=== PATIENT | male | born 1955 | race Caucasian/White ===

== ENCOUNTER 2016-11-03 07:09 | Emergency (ER) | payer MEDICAID ==
[~2016-11-03] VITALS: Ht 188 cm; Wt 72.1 kg
[~2016-11-03 07:09] MED LIST: HYDR-2549 PO
[2016-11-03 08:06] LABS: Basophils # (auto) 0 uL; Basophils % (auto) 0.3 % (0.0-2.0); Eosinophils # (auto) 0.2 uL; Eosinophils % (auto) 1.1 % (0.0-7.0); Hematocrit 40.8 % (41.0-53.0); Hemoglobin 14.1 g/dL (13.5-17.5); Lymphocytes # (auto) 4.2 uL; Lymphocytes % (auto) 26.8 % (10.0-50.0); Mean Corpuscular Hemoglobin 33.5 pg (28.0-32.0); Mean Corpuscular Hgb Conc. 34.7 g/dL (32.0-36.0); Mean Corpuscular Volume 96.5 fL (80.0-100.0); Monocytes # (auto) 1.3 uL; Monocytes % (auto) 8.3 % (0.0-12.0); Neutrophils % (auto) 63.5 % (37.0-80.0); Platelet Count (auto) 537 10^3/uL (140-450); Red Cell Distribution Width 13.2 % (11.6-16.0); White Blood Cell 15.7 10^3/uL (4.4-10.8)
[2016-11-03 08:25] LABS: Albumin 3.5 g/dL (3.4-5.0); Anion Gap 8 (5-15); Blood Urea Nitrogen 10 mg/dL (7-18); Calcium 8.2 mg/dL (8.5-10.1); Carbon Dioxide 23 mmol/L (21-32); Chloride 105 mmol/L (98-107); Glucose 90 mg/dL (74-106); Magnesium 2.1 mg/dL (1.6-2.6); Potassium 3.4 mmol/L (3.5-5.1); Sodium 136 mmol/L (136-145)
[2016-11-03 08:28] LABS: Aspartate Aminotransferase 8 U/L (15-37); BUN/Creatinine Ratio 14.7; GFR African American 153 mL/min; GFR Non-African American 127 mL/min
[2016-11-03 08:42] LABS: Alkaline Phosphatase 84 U/L (45-117); Bilirubin, Total 0.2 mg/dL (0.2-1.0); Total Protein 7.4 g/dL (6.4-8.2)
[2016-11-03 10:05] LABS: Urine Bilirubin Negative (Negative); Urine Blood Negative /uL (Negative); Urine Color Yellow (Yellow); Urine Glucose Normal (Normal); Urine Ketone Negative (Negative); Urine Nitrite Negative (Negative); Urine RBC 1 /hpf (0 - 3); Urine Urobilinogen Normal (Negative)
[2016-11-03] MEDS ORDERED: SODIUM CHLORIDE 0.9% 1,000 ML IVB ONE (10:06)
[2016-11-03] MEDS ORDERED: ONDANSETRON HCL 4 MG/2 ML VIAL IV ONE (10:15)
[2016-11-03] MEDS ORDERED: NALBUPHINE HCL 10 MG/1ml INJECTION IV ONE (11:15)
[2016-11-03 11:48] VITALS: BP 120/74
== END 2016-11-03 12:32 | disposition home or self-care (01) ==
LOC: ER 07:09
DX: R10.9 Unspecified abdominal pain (principal); R51 Headache; G89.29 Other chronic pain; R11.2 Nausea with vomiting, unspecified; R19.7 Diarrhea, unspecified; M54.9 Dorsalgia, unspecified; F17.210 Nicotine dependence, cigarettes, uncomplicated; R53.1 Weakness; Z96.642 Presence of left artificial hip joint; Z88.0 Allergy status to penicillin; Z88.8 Allergy status to other drugs, medicaments and biological substances
CPT/HCPCS: 36415; 71020; 74176; 80053; 81001; 83690; 83735; 84484; 85025; 93005; 96361; 96374; 96375; 99285; J2300; J2405; J7030

== ENCOUNTER 2017-08-16 04:11 | Emergency (ER) | payer MEDICAID ==
[~2017-08-16] VITALS: Ht 182.9 cm; Wt 90.7 kg
[2017-08-16] MEDS ORDERED: MORPHINE SULFATE 4 MG/ML SYR/VIAL IV ONE (05:30)
[2017-08-16 06:26] LABS: Basophils # (auto) 0.1 uL; Basophils % (auto) 0.6 % (0.0-2.0); Eosinophils # (auto) 0.2 uL; Eosinophils % (auto) 1.7 % (0.0-7.0); Hematocrit 37.9 % (41.0-53.0); Hemoglobin 13.1 g/dL (13.5-17.5); Lymphocytes # (auto) 2.1 uL; Lymphocytes % (auto) 18.8 % (10.0-50.0); Mean Corpuscular Hemoglobin 33.8 pg (28.0-32.0); Mean Corpuscular Hgb Conc. 34.6 g/dL (32.0-36.0); Mean Corpuscular Volume 97.8 fL (80.0-100.0); Monocytes # (auto) 0.9 uL; Monocytes % (auto) 7.6 % (0.0-12.0); Neutrophils # (auto) 8.1 uL; Neutrophils % (auto) 71.3 % (37.0-80.0); Nucleated Red Blood Cells % 0.1 %; Platelet Count (auto) 383 10^3/uL (140-450); Red Blood Cells 3.88 10^6/uL (4.5-5.90); Red Cell Distribution Width 13.3 % (11.8-14.3); White Blood Cell 11.4 10^3/uL (4.4-10.8)
[2017-08-16 06:42] LABS: Alanine Aminotransferase 16 U/L (16-61); Albumin 3.4 g/dL (3.4-5.0); Alkaline Phosphatase 88 U/L (45-117); Anion Gap 8 (5-15); Aspartate Aminotransferase 9 U/L (15-37); BUN/Creatinine Ratio 11.5; Bilirubin, Total 0.3 mg/dL (0.2-1.0); Blood Urea Nitrogen 7 mg/dL (7-18); Calcium 7.8 mg/dL (8.5-10.1); Carbon Dioxide 24 mmol/L (21-32); Chloride 102 mmol/L (98-107); GFR African American 173 mL/min; GFR Non-African American 143 mL/min; Glucose 102 mg/dL (74-106); Potassium 3.8 mmol/L (3.5-5.1); Sodium 134 mmol/L (136-145); Total Protein 6.5 g/dL (6.4-8.2)
[2017-08-16] MEDS ORDERED: ONDANSETRON HCL 4 MG/2 ML VIAL IV ONE (07:00)
[2017-08-16] MEDS ORDERED: SUMAtriptan SUCCINATE 6 MG/0.5 ML VL SC ONE (07:00)
[2017-08-16 09:00] VITALS: BP 116/71
== END 2017-08-16 09:23 | disposition home or self-care (01) ==
LOC: EDBD 04:11 → ER 04:15
DX: G43.909 Migraine, unspecified, not intractable, without status migrainosus (principal); F17.210 Nicotine dependence, cigarettes, uncomplicated; Z88.0 Allergy status to penicillin; Z88.8 Allergy status to other drugs, medicaments and biological substances; Z90.49 Acquired absence of other specified parts of digestive tract
CPT/HCPCS: 36415; 70450; 80053; 84484; 85025; 93005; 96372; 96374; 96375; 99285; J2270; J2405; J3030; J7030

== ENCOUNTER 2020-12-01 07:00 | Inpatient (IN) | payer MEDICAID ==
[~2020-12-01] VITALS: Ht 182.9 cm; Wt 70.1 kg
[2020-12-01] MEDS ORDERED: ONDANSETRON HCL 4 MG/2 ML VIAL IV ONE ×2 (07:30→09:00)
[2020-12-01] MEDS ORDERED: SODIUM CHLORIDE 0.9% 1,000 ML IV ONE ×3 (07:30→10:30)
[2020-12-01] MEDS ORDERED: MORPHINE SULF INJ 2 MG/ML SYRINGE 1ML IV ONE (07:30)
[2020-12-01 07:55] LABS: Basophils # (auto) 0.1 10 ^3/uL (0-0.2); Hemoglobin 13.7 g/dL (13.5-17.5); Neutrophils % (auto) 79.1 % (37.0-80.0)
[2020-12-01 07:57] LABS: Basophils % (auto) 0.6 % (0.0-2.0); Eosinophils # (auto) 0.4 10 ^3/uL (0-0.8); Eosinophils % (auto) 2.5 % (0.0-7.0); Lymphocytes # (auto) 1.7 10 ^3/uL (0.4-5.4); Lymphocytes % (auto) 10.9 % (10.0-50.0); Mean Corpuscular Hemoglobin 33.9 pg (28.0-32.0); Mean Corpuscular Hgb Conc. 35.1 g/dL (32.0-36.0); Mean Corpuscular Volume 96.7 fL (80.0-100.0); Monocytes # (auto) 1.1 10 ^3/uL (0-1.3); Monocytes % (auto) 6.9 % (0.0-12.0); Neutrophils # (auto) 12.6 10 ^3/uL (1.6-8.6); Platelet Count (auto) 414 10^3/uL (140-450); Red Blood Cells 4.03 10^6/uL (4.5-5.90); Red Cell Distribution Width 14.1 % (11.8-14.3); White Blood Cell 15.9 10^3/uL (4.4-10.8)
[2020-12-01 08:10] LABS: Chloride 100 mmol/L (98-107); Sodium 134 mmol/L (136-145)
[2020-12-01 08:19] LABS: Alanine Aminotransferase 16 U/L (16-61); Albumin 3.8 g/dL (3.4-5.0); Alkaline Phosphatase 79 U/L (45-117); Anion Gap 6 (5-15); Aspartate Aminotransferase 6 U/L (15-37); Bilirubin, Total 0.4 mg/dL (0.2-1.0); Blood Urea Nitrogen 22 mg/dL (7-18); Calcium 8.7 mg/dL (8.5-10.1); Carbon Dioxide 28 mmol/L (21-32); GFR African American 112 mL/min; GFR Non-African American 93 mL/min; Glucose 107 mg/dL (74-106); Lipase 135 U/L (73-393); Magnesium 2.1 mg/dL (1.6-2.6)
[2020-12-01] MEDS ORDERED: cefTRIAXone 1GM/50ML D5W 50 ML IV ONE (09:00)
[2020-12-01] MEDS ORDERED: FLEET ENEMA(ADULT) 135 ML PR ONE (09:00)
[2020-12-01] MEDS ORDERED: MORPHINE SULFATE 4 MG/ML SYR/VIAL IV ONE (09:00)
[2020-12-01] MEDS ORDERED: MORPHINE SULF INJ 2 MG/ML SYRINGE 1ML IV PRN (10:15)
[2020-12-01] MEDS ORDERED: ACETAMINOPHEN 325 MG TAB PO PRN (10:15)
[2020-12-01] MEDS ORDERED: HYDROcodone-ACET 5/325MG TAB PO PRN (10:15)
[2020-12-01] MEDS ORDERED: MORPHINE SULFATE 4 MG/ML SYR/VIAL IV PRN (10:15)
[2020-12-01] MEDS ORDERED: NITROGLYCERIN 0.4 MG SL TAB SL PRN (10:15)
[2020-12-01] MEDS ORDERED: TEMAZEPAM 15 MG CAP PO PRN (10:15)
[2020-12-01 10:19] LABS: Urine Bacteria FEW /hpf (None Seen); Urine Blood Negative /uL (Negative); Urine Hyaline Cast MANY /lpf (0 - 2); Urine Specific Gravity 1.032 (1.001-1.035); Urine WBC <1 /hpf (0 - 3)
[2020-12-01] MEDS ORDERED: HYDROmorphone HCL 2 MG/ML VL IV ONE (10:45)
[2020-12-01] MEDS: HYDROmorphone HCL 2 MG/ML VL IV PRN ×3 (13:46→21:56)
[2020-12-01] MEDS ORDERED: GOLYTELY 4L KIT PO ONE (14:45)
[2020-12-01 16:29] LABS: INR 0.99 (0.9-1.15)
[2020-12-01] MEDS ORDERED: PROMETHAZINE HCL 25 MG/ML 1ML ONE (16:41)
[2020-12-01] MEDS: PANTOPRAZOLE 40 MG/10 ML VIAL INJ IV SCH (22:00)
[2020-12-01] MEDS ORDERED: FAMOTIDINE 20 MG TAB PO SCH (22:00)
[2020-12-01 22:19] VITALS: BP 125/72
[2020-12-02] MEDS: HYDROmorphone HCL 2 MG/ML VL IV PRN ×6 (01:42→23:02)
[2020-12-02 05:20] VITALS: BP 109/62
[2020-12-02 05:34] LABS: Basophils # (auto) 0.1 10 ^3/uL (0-0.2); Eosinophils # (auto) 0.2 10 ^3/uL (0-0.8); Eosinophils % (auto) 1.5 % (0.0-7.0); Hematocrit 36.7 % (41.0-53.0); Hemoglobin 12.8 g/dL (13.5-17.5); Lymphocytes # (auto) 2.4 10 ^3/uL (0.4-5.4); Mean Corpuscular Hemoglobin 33.9 pg (28.0-32.0); Mean Corpuscular Hgb Conc. 34.9 g/dL (32.0-36.0); Mean Corpuscular Volume 97.1 fL (80.0-100.0); Monocytes # (auto) 0.8 10 ^3/uL (0-1.3); Monocytes % (auto) 6.7 % (0.0-12.0); Neutrophils % (auto) 69.8 % (37.0-80.0); Platelet Count (auto) 382 10^3/uL (140-450); Red Blood Cells 3.78 10^6/uL (4.5-5.90); Red Cell Distribution Width 14.1 % (11.8-14.3); White Blood Cell 11.5 10^3/uL (4.4-10.8)
[2020-12-02 05:49] LABS: Albumin 3.2 g/dL (3.4-5.0); Calcium 7.8 mg/dL (8.5-10.1); Potassium 3.7 mmol/L (3.5-5.1)
[2020-12-02 05:55] LABS: BUN/Creatinine Ratio 20.8; Bilirubin, Total 0.4 mg/dL (0.2-1.0); Total Protein 6.1 g/dL (6.4-8.2)
[2020-12-02 09:00] VITALS: BP 100/58
[2020-12-02] MEDS: PANTOPRAZOLE 40 MG/10 ML VIAL INJ IV SCH ×2 (10:16→21:00)
[2020-12-02] MEDS: ENOXAPARIN SOD 40 MG/0.4 ML SYRINGE SC SCH (10:17)
[2020-12-02] MEDS: ONDANSETRON HCL 4 MG/2 ML VIAL IV PRN ×3 (10:35→19:54)
[2020-12-02] MEDS ORDERED: GOLYTELY 4L KIT PO ONE (12:15)
[2020-12-02 13:00] VITALS: BP 102/64
[2020-12-02 17:00] VITALS: BP 113/70
[2020-12-02 22:36] VITALS: BP 121/74
[2020-12-03] MEDS: HYDROmorphone HCL 2 MG/ML VL IV PRN ×2 (02:17→06:08)
[2020-12-03] MEDS: ONDANSETRON HCL 4 MG/2 ML VIAL IV PRN ×2 (02:17→08:36)
[2020-12-03 05:17] VITALS: BP 118/62
[2020-12-03 09:00] VITALS: BP 129/78
[2020-12-03] MEDS ORDERED: LIDOCAINE VISCOUS 2% 15ML UD ONE (09:30)
[2020-12-03] MEDS: ENOXAPARIN SOD 40 MG/0.4 ML SYRINGE SC SCH (09:48)
[2020-12-03] MEDS: PANTOPRAZOLE 40 MG/10 ML VIAL INJ IV SCH (09:48)
[2020-12-03] MEDS ORDERED: MEPERIDINE HCL (25 MG/ML) 1ML VIAL ONE (09:51)
[2020-12-03] MEDS ORDERED: MIDAZOLAM HCL 1MG/1ML-2 ML VIAL ONE (09:51)
[2020-12-03] MEDS ORDERED: fentaNYL CITRATE 100 MCG/2 ML VL ONE (09:51)
[2020-12-03] MEDS ORDERED: DexAMETHasone SOD PHOS 10MG/1ML VIAL INJ ONE (09:57)
[2020-12-03] MEDS ORDERED: PROPOFOL 10 MG/ML 20 ML IV ONE (09:57)
[2020-12-03] MEDS ORDERED: hydrALAZINE HCL 20 MG/ML VL IV PRN (10:30)
[2020-12-03] MEDS ORDERED: ONDANSETRON HCL 4 MG/2 ML VIAL IV PRN (10:30)
[2020-12-03] MEDS ORDERED: MORPHINE SULFATE 4 MG/ML SYR/VIAL IV PRN (10:30)
[2020-12-03] MEDS ORDERED: LABETALOL HCL 5 MG/ML 4ML SYRINGE IV PRN (10:30)
[2020-12-03] MEDS ORDERED: MIDAZOLAM HCL 1MG/1ML-2 ML VIAL IV PRN (10:30)
[2020-12-03] MEDS ORDERED: HYDROmorphone HCL 2 MG/ML VL IV PRN (10:30)
[2020-12-03] MEDS ORDERED: ePHEDrine SULFATE 50 MG/ML AMP IV PRN (10:30)
[2020-12-03] MEDS ORDERED: SUCRALFATE 1 GM/10 ML ORAL SUSP PO SCH (11:30)
[2020-12-03 13:08] VITALS: BP 117/73
[2020-12-03] MEDS ORDERED: PANTOPRAZOLE 40 MG TAB PO SCH (22:00)
== END 2020-12-03 14:45 | disposition home or self-care (01) | DRG 241 ==
LOC: EDBD 07:00 → ER 07:00 → TELE 10:15 → TELE-EAST 19:54
PROVIDERS: ADMIT Nurse Practitioner; ATTEND Nurse Practitioner
PROC: 0DB68ZX Excision of Stomach, Via Natural or Artificial Opening Endoscopic, Diagnostic (ICD-10-PCS; principal; 2020-12-03 09:46)
PROC: 0DBN8ZX Excision of Sigmoid Colon, Via Natural or Artificial Opening Endoscopic, Diagnostic (ICD-10-PCS; 2020-12-03 09:46)
DX: K29.70 Gastritis, unspecified, without bleeding (principal); K26.9 Duodenal ulcer, unspecified as acute or chronic, without hemorrhage or perforation; K21.9 Gastro-esophageal reflux disease without esophagitis; F17.210 Nicotine dependence, cigarettes, uncomplicated; K63.5 Polyp of colon; K59.00 Constipation, unspecified; F32.9 Major depressive disorder, single episode, unspecified; F41.9 Anxiety disorder, unspecified; G89.29 Other chronic pain; Z20.822 Contact with and (suspected) exposure to COVID-19; K29.80 Duodenitis without bleeding; K64.8 Other hemorrhoids; Z88.0 Allergy status to penicillin; Z88.8 Allergy status to other drugs, medicaments and biological substances; Z90.49 Acquired absence of other specified parts of digestive tract
CPT/HCPCS: 36415; 71045; 74176; 80053; 81001; 82784; 83516; 83690; 83735; 84484; 85025; 85610; 86255; 87081; 87426; 93005; 96365; 96375; 96376; C9113; G0378; J0696; J1100; J2250; J2405; J2704

== ENCOUNTER 2021-08-25 05:48 | Emergency (ER) | payer MEDICAID ==
[~2021-08-25] VITALS: Ht 185.4 cm; Wt 74.8 kg
[2021-08-25 06:46] LABS: Basophils # (auto) 0.1 10 ^3/uL (0-0.2); Basophils % (auto) 0.5 % (0.0-2.0); Eosinophils # (auto) 0.3 10 ^3/uL (0-0.8); Eosinophils % (auto) 2.1 % (0.0-7.0); Hematocrit 38.4 % (41.0-53.0); Hemoglobin 12.8 g/dL (13.5-17.5); Lymphocytes # (auto) 1.1 10 ^3/uL (0.4-5.4); Lymphocytes % (auto) 8.3 % (10.0-50.0); Mean Corpuscular Hemoglobin 32.1 pg (28.0-32.0); Mean Corpuscular Hgb Conc. 33.3 g/dL (32.0-36.0); Mean Corpuscular Volume 96.4 fL (80.0-100.0); Monocytes # (auto) 0.8 10 ^3/uL (0-1.3); Monocytes % (auto) 6.4 % (0.0-12.0); Neutrophils # (auto) 10.6 10 ^3/uL (1.6-8.6); Neutrophils % (auto) 82.7 % (37.0-80.0); Red Blood Cells 3.98 10^6/uL (4.5-5.90); Red Cell Distribution Width 13.2 % (11.8-14.3); White Blood Cell 12.8 10^3/uL (4.4-10.8)
[2021-08-25 06:55] LABS: Albumin 4.1 g/dL (3.4-5.0); Calcium 8.6 mg/dL (8.5-10.1); Potassium 4.7 mmol/L (3.5-5.1)
[2021-08-25 07:00] LABS: BUN/Creatinine Ratio 11.2; Bilirubin, Total 0.3 mg/dL (0.2-1.0); Total Protein 7.6 g/dL (6.4-8.2)
[2021-08-25] MEDS ORDERED: HYDROmorphone HCL 2 MG/ML VL IV ONE (07:30)
[2021-08-25] MEDS ORDERED: METOCLOPRAMIDE HCL 5MG/ml INJ 2ml VIAL IV ONE (07:30)
[2021-08-25 08:50] LABS: Urine Bacteria NONE SEEN /hpf (None Seen); Urine Blood Negative /uL (Negative); Urine Specific Gravity 1.026 (1.001-1.035); Urine WBC <1 /hpf (0 - 3)
[2021-08-25] MEDS ORDERED: DexAMETHasone SOD PHOS 4 MG/1ML SDV INJ ONE (09:39)
[2021-08-25] MEDS ORDERED: DexAMETHasone SOD PHOS 10MG/1ML VIAL INJ IV ONE (09:45)
[2021-08-25] MEDS ORDERED: MORPHINE SULFATE INJECTION 2 MG/ML SYRG IV ONE (11:00)
[2021-08-25 16:42] VITALS: BP 139/73
== END 2021-08-25 16:02 | disposition home or self-care (01) ==
LOC: EDBD 05:48 → ER 05:48
DX: S22.038A Other fracture of third thoracic vertebra, initial encounter for closed fracture (principal); S22.058A Other fracture of T5-T6 vertebra, initial encounter for closed fracture; S22.068A Other fracture of T7-T8 thoracic vertebra, initial encounter for closed fracture; G89.29 Other chronic pain; M54.50 Low back pain, unspecified; F17.210 Nicotine dependence, cigarettes, uncomplicated; Z90.49 Acquired absence of other specified parts of digestive tract; Z79.899 Other long term (current) drug therapy; Z88.0 Allergy status to penicillin; Z88.8 Allergy status to other drugs, medicaments and biological substances; Z20.822 Contact with and (suspected) exposure to COVID-19; W18.39XA Other fall on same level, initial encounter; Y93.89 Activity, other specified; Y92.89 Other specified places as the place of occurrence of the external cause; Y99.8 Other external cause status
CPT/HCPCS: 36415; 72128; 72131; 80053; 81001; 84484; 85025; 87426; 96374; 96375; 99285; J1100; J1170; J2270; J2765; 93005

== ENCOUNTER 2022-08-21 21:15 | Inpatient (IN) | payer MEDICARE, MEDICAID ==
[~2022-08-21] VITALS: Ht 182.9 cm; Wt 72.0 kg
[2022-08-21 22:56] LABS: Basophils # (auto) 0.1 10 ^3/uL (0-0.2); Basophils % (auto) 1.3 % (0.0-2.0); Eosinophils # (auto) 0.6 10 ^3/uL (0-0.8); Eosinophils % (auto) 8.1 % (0.0-7.0); Hematocrit 38.1 % (41.0-53.0); Hemoglobin 12.8 g/dL (13.5-17.5); Lymphocytes # (auto) 2.4 10 ^3/uL (0.4-5.4); Lymphocytes % (auto) 34.6 % (10.0-50.0); Mean Corpuscular Hemoglobin 32.4 pg (28.0-32.0); Mean Corpuscular Hgb Conc. 33.6 g/dL (32.0-36.0); Mean Corpuscular Volume 96.3 fL (80.0-100.0); Monocytes # (auto) 0.6 10 ^3/uL (0-1.3); Monocytes % (auto) 8.7 % (0.0-12.0); Neutrophils # (auto) 3.3 10 ^3/uL (1.6-8.6); Neutrophils % (auto) 47.3 % (37.0-80.0); Nucleated Red Blood Cells % 0.1 %; Red Blood Cells 3.96 10^6/uL (4.5-5.90); Red Cell Distribution Width 14.3 % (11.8-14.3)
[2022-08-21 23:15] LABS: Albumin 3.5 g/dL (3.4-5.0); Calcium 8.4 mg/dL (8.5-10.1); Potassium 4.1 mmol/L (3.5-5.1)
[2022-08-21 23:17] LABS: BUN/Creatinine Ratio 9.7
[2022-08-21 23:20] LABS: Bilirubin, Total 0.3 mg/dL (0.2-1.0); Total Protein 6.4 g/dL (6.4-8.2)
[2022-08-21] MEDS ORDERED: ACETAMINOPHEN 325 MG TAB PO ONE (23:30)
[2022-08-21] MEDS ORDERED: SODIUM CHLORIDE 0.9% 1,000 ML IV ONE (23:30)
[2022-08-22] MEDS ORDERED: ONDANSETRON HCL 4 MG/2 ML VIAL IV PRN (03:00)
[2022-08-22] MEDS ORDERED: ACETAMINOPHEN 325 MG TAB PO PRN (03:00)
[2022-08-22 04:25] LABS: Urine Bacteria NONE SEEN /hpf (None Seen); Urine Blood Negative /uL (Negative); Urine Hyaline Cast FEW /lpf (0 - 2); Urine Specific Gravity 1.028 (1.001-1.035); Urine WBC <1 /hpf (0 - 3)
[2022-08-22 04:26] LABS: Alcohol, Urine < 3.0 mg/dL (0-10); Amphetamine Screen, Urine NEGATIVE (NEGATIVE); Barbiturate Scree,Urine NEGATIVE (NEGATIVE); Benzodiazephine Screen, Urine NEGATIVE (NEGATIVE); Cannabinoid Screen, Urine NEGATIVE (NEGATIVE); Cocaine Screen, Urine NEGATIVE (NEGATIVE); Opiate Scree,Urine POSITIVE (NEGATIVE); Phencyclidine Screen, Urine NEGATIVE (NEGATIVE)
[2022-08-22] MEDS: ENOXAPARIN SOD 40 MG/0.4 ML SYRINGE SC SCH (10:35)
[2022-08-22] MEDS: PANTOPRAZOLE 40 MG TAB PO SCH (10:35)
[2022-08-22] MEDS ORDERED: levoFLOXacin 500MG 100 ML IV ONE (12:00)
[2022-08-22] MEDS: chlordiazePOXIDE HCL 25 MG CAP PO SCH ×2 (12:45→21:58)
[2022-08-22] MEDS: HYDROcodone-ACET 5/325MG TAB PO PRN ×2 (14:08→20:35)
[2022-08-22] MEDS: FOLIC ACID 1 MG, MULTIPLE VITAMIN 10 ML, MAGNESIUM SULF SDV 50% 8 MEQ, THIAMINE INJ 100... INJ SCH ×10 (14:10→16:45)
[2022-08-22] MEDS ORDERED: KETOROLAC TROMETH 30 MG/ML 1ML VIAL IV PRN (16:00)
[2022-08-22] MEDS: MORPHINE SULFATE INJ 2 MG/ml SYRG IV PRN (22:26)
[2022-08-23] MEDS: chlordiazePOXIDE HCL 25 MG CAP PO SCH ×4 (00:26→17:55)
[2022-08-23] MEDS: HYDROcodone-ACET 5/325MG TAB PO PRN ×2 (01:02→06:13)
[2022-08-23] MEDS: MORPHINE SULFATE INJ 2 MG/ml SYRG IV PRN ×2 (02:36→08:57)
[2022-08-23 07:37] LABS: Calcium 8.4 mg/dL (8.5-10.1); Potassium 3.9 mmol/L (3.5-5.1)
[2022-08-23 07:41] LABS: BUN/Creatinine Ratio 11.3
[2022-08-23 08:03] VITALS: BP 131/72
[2022-08-23 09:00] VITALS: BP 131/72
[2022-08-23] MEDS: ENOXAPARIN SOD 40 MG/0.4 ML SYRINGE SC SCH (10:35)
[2022-08-23] MEDS: levoFLOXacin 500MG 100 ML IV SCH (10:36)
[2022-08-23] MEDS: PANTOPRAZOLE 40 MG TAB PO SCH (10:36)
[2022-08-23] MEDS: FOLIC ACID 1 MG, MULTIPLE VITAMIN 10 ML, MAGNESIUM SULF SDV 50% 8 MEQ, THIAMINE INJ 100... INJ SCH ×5 (12:00)
[2022-08-23 13:00] VITALS: BP 128/81
[2022-08-23] MEDS: OXYCODONE W/ ACETAMINOPHEN 5/325MG TABLET PO PRN ×2 (15:15→21:31)
[2022-08-23 17:00] VITALS: BP 119/70
[2022-08-23] MEDS ORDERED: LORazepam 2MG/ML-1ML VIAL IV PRN ×2 (20:00)
[2022-08-23] MEDS: levETIRAcetam 500 MG TAB PO SCH (21:31)
[2022-08-23 22:00] VITALS: BP 123/73
[2022-08-23] MEDS: TEMAZEPAM 15 MG CAP PO PRN (22:46)
[2022-08-24] MEDS: chlordiazePOXIDE HCL 25 MG CAP PO SCH ×5 (00:20→23:34)
[2022-08-24 05:00] VITALS: BP 115/75
[2022-08-24] MEDS: OXYCODONE W/ ACETAMINOPHEN 5/325MG TABLET PO PRN ×3 (05:05→21:49)
[2022-08-24 09:00] VITALS: BP 100/57
[2022-08-24] MEDS: ENOXAPARIN SOD 40 MG/0.4 ML SYRINGE SC SCH (09:47)
[2022-08-24] MEDS: PANTOPRAZOLE 40 MG TAB PO SCH (09:47)
[2022-08-24] MEDS: levETIRAcetam 500 MG TAB PO SCH ×2 (09:47→22:00)
[2022-08-24] MEDS: NICOTINE 21MG/24 HR TOPICAL PATCH TD SCH (09:48)
[2022-08-24] MEDS: levoFLOXacin 500MG 100 ML IV SCH (10:08)
[2022-08-24] MEDS: HYDROcodone-ACET 5/325MG TAB PO PRN (10:27)
[2022-08-24] MEDS: FOLIC ACID 1 MG, MULTIPLE VITAMIN 10 ML, MAGNESIUM SULF SDV 50% 8 MEQ, THIAMINE INJ 100... INJ SCH ×5 (12:49)
[2022-08-24 17:00] VITALS: BP 117/74
[2022-08-24 22:00] VITALS: BP 114/74
[2022-08-24] MEDS: TEMAZEPAM 15 MG CAP PO PRN (23:34)
[2022-08-25 05:00] VITALS: BP 99/73
[2022-08-25] MEDS: chlordiazePOXIDE HCL 25 MG CAP PO SCH ×2 (07:05→12:00)
[2022-08-25] MEDS: OXYCODONE W/ ACETAMINOPHEN 5/325MG TABLET PO PRN (07:07)
[2022-08-25 09:00] VITALS: BP 109/58
[2022-08-25] MEDS: NICOTINE 21MG/24 HR TOPICAL PATCH TD SCH (10:00)
[2022-08-25] MEDS: ENOXAPARIN SOD 40 MG/0.4 ML SYRINGE SC SCH (10:44)
[2022-08-25] MEDS: PANTOPRAZOLE 40 MG TAB PO SCH (10:44)
[2022-08-25] MEDS: levETIRAcetam 500 MG TAB PO SCH (10:44)
[2022-08-25] MEDS: levoFLOXacin 500MG 100 ML IV SCH (10:44)
[2022-08-25] MEDS ORDERED: PANT40T PO (10:46)
[2022-08-25] MEDS ORDERED: LEVE500T32 PO (10:46)
[2022-08-25] MEDS ORDERED: CHL25C PO (10:46)
[2022-08-25] MEDS ORDERED: LEVO500T31 PO (10:46)
[2022-08-25] MEDS ORDERED: THIA100T5 PO (10:46)
[2022-08-25] MEDS ORDERED: FOLI1TAB6 PO (10:46)
[2022-08-25] MEDS ORDERED: NIC21P TOP (10:51)
[2022-08-25 11:32] VITALS: BP 109/58
[2022-08-25] MEDS: FOLIC ACID 1 MG, MULTIPLE VITAMIN 10 ML, MAGNESIUM SULF SDV 50% 8 MEQ, THIAMINE INJ 100... INJ SCH ×5 (12:00)
[2022-08-28] MEDS ORDERED: PERCOT PO (10:24)
[2022-08-28] MEDS ORDERED: BUTA-281 OR (10:24)
== END 2022-08-25 12:42 | disposition home or self-care (01) | DRG 70 ==
LOC: ER 21:15 → EDBD 21:15 → TELE 08-22 02:47 → TELE-WESTW 08-23 07:48
PROVIDERS: ADMIT Nurse Practitioner; ATTEND Family Medicine
DX: G93.41 Metabolic encephalopathy (principal); J18.9 Pneumonia, unspecified organism; G40.209 Localization-related (focal) (partial) symptomatic epilepsy and epileptic syndromes with complex partial seizures, not intractable, without status epilepticus; I95.9 Hypotension, unspecified; F10.229 Alcohol dependence with intoxication, unspecified; F17.210 Nicotine dependence, cigarettes, uncomplicated; G89.29 Other chronic pain; F41.9 Anxiety disorder, unspecified; M54.9 Dorsalgia, unspecified; R51.9 Headache, unspecified; Z20.822 Contact with and (suspected) exposure to COVID-19; G40.409 Other generalized epilepsy and epileptic syndromes, not intractable, without status epilepticus; K40.90 Unilateral inguinal hernia, without obstruction or gangrene, not specified as recurrent; Y90.0 Blood alcohol level of less than 20 mg/100 ml; Z79.891 Long term (current) use of opiate analgesic; Z79.899 Other long term (current) drug therapy; Z82.49 Family history of ischemic heart disease and other diseases of the circulatory system; Z85.820 Personal history of malignant melanoma of skin; Z88.0 Allergy status to penicillin; Z90.49 Acquired absence of other specified parts of digestive tract; Z92.21 Personal history of antineoplastic chemotherapy; Z71.6 Tobacco abuse counseling; Z88.8 Allergy status to other drugs, medicaments and biological substances
CPT/HCPCS: 36415; 70450; 70551; 71045; 71250; 72125; 74176; 80048; 80053; 80307; 80320; 80329; 81001; 82140; 83605; 83880; 84484; 85025; 86850; 86900; 86901; 87040; 87426; 87804; 93005; 93306; 93886; 95819; 96360; G0378; J1956

== ENCOUNTER → 2022-08-29 | Day surgery (SDC) | payer MEDICARE, MEDICAID ==
[2022-08-27 13:00] LABS: Basophils # (auto) 0.1 10 ^3/uL (0-0.2); Basophils % (auto) 1.2 % (0.0-2.0); Eosinophils # (auto) 0.9 10 ^3/uL (0-0.8); Eosinophils % (auto) 8.7 % (0.0-7.0); Hematocrit 41.4 % (41.0-53.0); Hemoglobin 13.9 g/dL (13.5-17.5); Lymphocytes # (auto) 2.8 10 ^3/uL (0.4-5.4); Mean Corpuscular Hgb Conc. 33.6 g/dL (32.0-36.0); Mean Corpuscular Volume 95.2 fL (80.0-100.0); Monocytes # (auto) 0.7 10 ^3/uL (0-1.3); Monocytes % (auto) 7.1 % (0.0-12.0); Neutrophils # (auto) 5.4 10 ^3/uL (1.6-8.6); Nucleated Red Blood Cells % 0.1 %; Red Blood Cells 4.34 10^6/uL (4.5-5.90); Red Cell Distribution Width 14.3 % (11.8-14.3); White Blood Cell 9.8 10^3/uL (4.4-10.8)
[2022-08-27 13:20] LABS: INR 0.97 (0.9-1.15); Partial Thromboplastin Time 26.7 sec (24.6-33.4)
[2022-08-27 13:28] LABS: Albumin 3.9 g/dL (3.4-5.0); Calcium 9.1 mg/dL (8.5-10.1); Potassium 4.8 mmol/L (3.5-5.1)
[2022-08-27 13:31] LABS: BUN/Creatinine Ratio 13.2; Bilirubin, Total 0.2 mg/dL (0.2-1.0); Total Protein 7.1 g/dL (6.4-8.2)
[~2022-08-29] VITALS: Ht 185.4 cm; Wt 74.8 kg
[~2022-08-29] MED LIST changes: +BUTA-281 OR; +CHL25C PO; +ETOMIDATE (2MG/ML) 20ML VIAL IV ONE; +FOLI1TAB6 PO; +HYDROmorphone HCL 2 MG/ML VL/or syr IV PRN; +LEVE500T32 PO; +LEVO500T31 PO; +MIDAZOLAM HCL 2MG/2ML 2ml VIAL (1mg/ml) ONE; +NIC21P TOP; +ONDANSETRON HCL 4 MG/2 ML VIAL IV PRN; +ONDANSETRON HCL 4 MG/2 ML VIAL ONE; +PANT40T PO; +PERCOT PO; +ROCURONIUM 10MG/ML 10ML VIAL IV ONE; +THIA100T5 PO; +cefTRIAXone SOD 1,000 MG VL ONE; +fentaNYL CITRATE 5 ML ONE; +levoFLOXacin 500MG 100 ML IV ONE
[2022-08-29] MEDS: HYDROmorphone HCL 2 MG/ML VL/or syr IV PRN ×4 (11:40→12:14)
[2022-08-29 12:50] VITALS: BP 122/85
== END | disposition home or self-care (01) ==
LOC: SUR 06:55
PROVIDERS: ATTEND Surgery
DX: K40.90 Unilateral inguinal hernia, without obstruction or gangrene, not specified as recurrent (principal); G43.909 Migraine, unspecified, not intractable, without status migrainosus; F17.210 Nicotine dependence, cigarettes, uncomplicated; J43.9 Emphysema, unspecified; J18.9 Pneumonia, unspecified organism; Z85.820 Personal history of malignant melanoma of skin; Z88.0 Allergy status to penicillin; Z88.6 Allergy status to analgesic agent; Z88.8 Allergy status to other drugs, medicaments and biological substances; Z82.49 Family history of ischemic heart disease and other diseases of the circulatory system; Z98.890 Other specified postprocedural states; Z79.890 Hormone replacement therapy; Z20.822 Contact with and (suspected) exposure to COVID-19
CPT/HCPCS: 36415; 49505; 80053; 85025; 85610; 85730; 86850; 86900; 86901; C1781; J0696; J1170; J1956; J2250; J2405; J3010; J7030; U0003

== ENCOUNTER 2023-03-22 17:16 | Inpatient (IN) | payer MEDICARE, OTHER ==
[~2023-03-22] VITALS: Ht 185.4 cm; Wt 77.4 kg
[~2023-03-22 17:16] MED LIST changes: -ETOMIDATE (2MG/ML) 20ML VIAL IV ONE; +FOLI-119 PO; -FOLI1TAB6 PO; -HYDROmorphone HCL 2 MG/ML VL/or syr IV PRN; -LEVE500T32 PO; +LEVE500T40 PO; -MIDAZOLAM HCL 2MG/2ML 2ml VIAL (1mg/ml) ONE; -ONDANSETRON HCL 4 MG/2 ML VIAL IV PRN; -ONDANSETRON HCL 4 MG/2 ML VIAL ONE; -ROCURONIUM 10MG/ML 10ML VIAL IV ONE; -cefTRIAXone SOD 1,000 MG VL ONE; -fentaNYL CITRATE 5 ML ONE; -levoFLOXacin 500MG 100 ML IV ONE
[2023-03-22] MEDS ORDERED: ACCU-CHEK COMFORT CURVE STRIP VI ONE (17:30)
[2023-03-22 17:34] VITALS: PULSE 85; RESP 12; O2SAT 97
[2023-03-22] MEDS ORDERED: SODIUM CHLORIDE 0.9% 1,000 ML IV ONE ×2 (17:45→21:30)
[2023-03-22] MEDS: SODIUM CHLORIDE 0.9% 3,000 ML IV ONE ×2 (17:50→19:07)
[2023-03-22 18:22] LABS: Basophils # (auto) 0 10 ^3/uL (0-0.2); Basophils % (auto) 0.7 % (0.0-2.0); Eosinophils # (auto) 0.3 10 ^3/uL (0-0.8); Eosinophils % (auto) 4.6 % (0.0-7.0); Hematocrit 36.4 % (41.0-53.0); Hemoglobin 12.2 g/dL (13.5-17.5); Lymphocytes # (auto) 2.9 10 ^3/uL (0.4-5.4); Lymphocytes % (auto) 41.8 % (10.0-50.0); Mean Corpuscular Hemoglobin 32.4 pg (28.0-32.0); Mean Corpuscular Hgb Conc. 33.5 g/dL (32.0-36.0); Mean Corpuscular Volume 96.8 fL (80.0-100.0); Monocytes # (auto) 0.7 10 ^3/uL (0-1.3); Monocytes % (auto) 9.6 % (0.0-12.0); Neutrophils % (auto) 43.3 % (37.0-80.0); Nucleated Red Blood Cells % 0.3 %; Red Blood Cells 3.76 10^6/uL (4.5-5.90); Red Cell Distribution Width 15.5 % (11.8-14.3)
[2023-03-22 18:33] LABS: Alanine Aminotransferase 20 U/L (7-40); Albumin 3.6 g/dL (3.2-4.8); Alkaline Phosphatase 62 U/L (46-116); Anion Gap 7.9 (5-15); Aspartate Aminotransferase 30 U/L (13-40); BUN/Creatinine Ratio 10.8 (10.0-20.0); Bilirubin, Total 0.4 mg/dL (0.2-1.0); Blood Urea Nitrogen 17 mg/dL (9-23); Calcium 7.7 mg/dL (8.5-10.1); Carbon Dioxide 20.1 mmol/L (20-30); Chloride 99 mmol/L (98-107); Glucose 130 mg/dL (74-106); Potassium 3.6 mmol/L (3.5-5.1); Sodium 127 mmol/L (136-145); Total Protein 5.4 g/dL (5.7-8.2)
[2023-03-22 20:00] VITALS: PULSE 72; RESP 10; O2SAT 95
[2023-03-22] MEDS ORDERED: SODIUM CHLORIDE 0.9% 1,000 ML IVB ONE (21:30)
[2023-03-22] MEDS ORDERED: MORPHINE SULFATE 4 MG/ML SYR/VIAL IV ONE (21:45)
[2023-03-22] MEDS ORDERED: PROMETHAZINE HCL 25 MG/ML 1ML IV ONE (21:45)
[2023-03-22 21:48] LABS: Basophils # (auto) 0 10 ^3/uL (0-0.2); Basophils % (auto) 0.6 % (0.0-2.0); Eosinophils # (auto) 0.3 10 ^3/uL (0-0.8); Eosinophils % (auto) 4.1 % (0.0-7.0); Hematocrit 30.4 % (41.0-53.0); Hemoglobin 10.5 g/dL (13.5-17.5); Lymphocytes # (auto) 2.9 10 ^3/uL (0.4-5.4); Mean Corpuscular Hemoglobin 32.7 pg (28.0-32.0); Mean Corpuscular Hgb Conc. 34.7 g/dL (32.0-36.0); Mean Corpuscular Volume 94.1 fL (80.0-100.0); Monocytes # (auto) 0.4 10 ^3/uL (0-1.3); Monocytes % (auto) 5.7 % (0.0-12.0); Neutrophils # (auto) 3.6 10 ^3/uL (1.6-8.6); Neutrophils % (auto) 49.6 % (37.0-80.0); Nucleated Red Blood Cells % 0.1 %; Red Blood Cells 3.23 10^6/uL (4.5-5.90); White Blood Cell 7.2 10^3/uL (4.4-10.8)
[2023-03-22 22:03] LABS: INR 1.09 (0.9-1.15); Partial Thromboplastin Time 25.8 SEC (24.5-34.5); Prothrombin Time 11.4 sec (9.3-11.8)
[2023-03-22 22:10] LABS: Alanine Aminotransferase 18 U/L (7-40); Alkaline Phosphatase 59 U/L (46-116); Anion Gap 4.6 (5-15); Aspartate Aminotransferase 29 U/L (13-40); BUN/Creatinine Ratio 7.5 (10.0-20.0); Blood Urea Nitrogen 10 mg/dL (9-23); Calcium 7.1 mg/dL (8.7-10.4); Carbon Dioxide 20.4 mmol/L (20-30); Chloride 104 mmol/L (98-107); Glucose 58 mg/dL (74-106); Lipase 58 U/L (12-53); Magnesium 1.7 mg/dL (1.6-2.6); Potassium 3.3 mmol/L (3.5-5.1); Sodium 129 mmol/L (136-145)
[2023-03-22 22:11] LABS: Albumin 3.3 g/dL (3.2-4.8); Bilirubin, Total 0.3 mg/dL (0.2-1.0); Total Protein 5.1 g/dL (5.7-8.2)
[2023-03-22] MEDS ORDERED: ACETAMINOPHEN 325 MG TAB PO PRN (22:15)
[2023-03-22] MEDS ORDERED: CALCIUM GLUC 1,000mg/50ml-NS 50 ML IV ONE (22:15)
[2023-03-22] MEDS ORDERED: DOCUSATE SOD 100 MG CAP PO PRN (22:15)
[2023-03-22] MEDS ORDERED: DEXTROSE (50%) 50ML SYRG IV PRN (22:15)
[2023-03-22] MEDS ORDERED: ONDANSETRON HCL 4 MG/2 ML VIAL IV PRN (22:15)
[2023-03-22] MEDS ORDERED: HYDROcodone-ACET 5/325MG TAB PO PRN (22:15)
[2023-03-22] MEDS ORDERED: SODIUM CHLORIDE 0.9% 1,000 ML IV SCH (22:15)
[2023-03-22] MEDS ORDERED: NITROGLYCERIN 0.4 MG SL TAB SL PRN (23:45)
[2023-03-22] MEDS ORDERED: TIZA4CAP PO (23:52)
[2023-03-23] MEDS ORDERED: MORPHINE SULFATE INJ 2 MG/ml SYRG IV ONE
[2023-03-23] MEDS ORDERED: CYCLOBENZAPRINE HCL 10 MG TAB PO ONE
[2023-03-23] MEDS: MORPHINE SULFATE INJ 2 MG/ml SYRG IV PRN ×3 (00:21→20:04)
[2023-03-23] MEDS: oxyCODONE HCL 5MG TAB PO PRN ×4 (02:15→22:32)
[2023-03-23 03:08] LABS: Urine Bacteria NONE SEEN /hpf (None Seen); Urine Blood TRACE /uL (Negative); Urine Clarity Clear (Clear); Urine Color Yellow (Yellow); Urine Protein, UAD TRACE (Negative); Urine Specific Gravity 1.018 (1.001-1.035); Urine Urobilinogen Normal (Negative); Urine WBC 2 /hpf (0 - 3); Urine pH 5.5 (5.0-8.0)
[2023-03-23 04:20] LABS: Basophils # (auto) 0.1 10 ^3/uL (0-0.2); Basophils % (auto) 0.8 % (0.0-2.0); Eosinophils # (auto) 0.3 10 ^3/uL (0-0.8); Hematocrit 30.4 % (41.0-53.0); Hemoglobin 10.3 g/dL (13.5-17.5); Lymphocytes # (auto) 2.3 10 ^3/uL (0.4-5.4); Lymphocytes % (auto) 33.9 % (10.0-50.0); Mean Corpuscular Hemoglobin 32.1 pg (28.0-32.0); Mean Corpuscular Volume 94.4 fL (80.0-100.0); Monocytes # (auto) 0.4 10 ^3/uL (0-1.3); Monocytes % (auto) 5.9 % (0.0-12.0); Neutrophils # (auto) 3.6 10 ^3/uL (1.6-8.6); Neutrophils % (auto) 54.4 % (37.0-80.0); Nucleated Red Blood Cells % 0.1 %; Red Blood Cells 3.21 10^6/uL (4.5-5.90); Red Cell Distribution Width 15.8 % (11.8-14.3); White Blood Cell 6.7 10^3/uL (4.4-10.8)
[2023-03-23 05:06] LABS: Alanine Aminotransferase 17 U/L (7-40); Albumin 3.4 g/dL (3.2-4.8); Alkaline Phosphatase 60 U/L (46-116); Anion Gap 9.8 (5-15); Aspartate Aminotransferase 31 U/L (13-40); BUN/Creatinine Ratio 8.3 (10.0-20.0); Bilirubin, Total 0.4 mg/dL (0.2-1.0); Blood Urea Nitrogen 9 mg/dL (9-23); Carbon Dioxide 17.2 mmol/L (20-30); Chloride 104 mmol/L (98-107); Glucose 56 mg/dL (74-106); Potassium 3.6 mmol/L (3.5-5.1); Sodium 131 mmol/L (136-145); Total Protein 5.2 g/dL (5.7-8.2)
[2023-03-23] MEDS: ACCU-CHEK COMFORT CURVE STRIP VI SCH ×4 (07:00→22:00)
[2023-03-23] MEDS: InsuLIN REG 1unit/0.01ml Soln (100units/ml) SC SCH ×3 (07:00→17:00)
[2023-03-23 08:00] VITALS: PULSE 63; RESP 15; O2SAT 94
[2023-03-23] MEDS: FAMOTIDINE (10MG/ML) 2ML VL IV SCH ×2 (11:19→22:30)
[2023-03-23] MEDS: FOLIC ACID 1 MG TAB PO SCH (11:19)
[2023-03-23] MEDS: THIAMINE HCL 100 MG TAB PO SCH (11:19)
[2023-03-23] MEDS: MULTIPLE VITAMIN TAB PO SCH (11:19)
[2023-03-23] MEDS: D5W/SOD CHLO 0.9% 1,000 ML IV SCH ×2 (14:00→20:40)
[2023-03-23 14:29] VITALS: O2SAT 94
[2023-03-23 17:50] VITALS: BP_SYST 113; BP_SYST 118; BP_DIAS 73; BP_DIAS 74; BP_DIAS 77; PULSE 62; RESP 18; TEMP 98.8; O2SAT 96
[2023-03-23 18:46] LABS: LDL Cholesterol 133 mg/dL (< 100); Triglycerides 205 mg/dL (< 150)
[2023-03-23 18:48] LABS: Cholesterol 202 mg/dL (< 200); HDL Cholesterol 38 mg/dL (40-59)
[2023-03-23 20:00] VITALS: PULSE 64; RESP 20; O2SAT 95
[2023-03-23 22:00] VITALS: BP 107/67; PULSE 67; RESP 20; TEMP 97.9; O2SAT 95
[2023-03-23] MEDS ORDERED: InsuLIN REG 1unit/0.01ml Soln (100units/ml) SC SCH (22:00)
[2023-03-24] VITALS (7 sets, daily range): BP systolic 101–117; BP diastolic 68–77; PULSE 59–82; RESP 14–22; TEMP 97.6–98.7; O2SAT 94–100
[2023-03-24] MEDS: MORPHINE SULFATE INJ 2 MG/ml SYRG IV PRN ×2 (00:20→06:38)
[2023-03-24] MEDS: D5W/SOD CHLO 0.9% 1,000 ML IV SCH ×2 (03:55→09:26)
[2023-03-24] MEDS: oxyCODONE HCL 5MG TAB PO PRN ×2 (04:49→11:43)
[2023-03-24 06:20] LABS: Alanine Aminotransferase 18 U/L (7-40); Albumin 3.8 g/dL (3.2-4.8); Alkaline Phosphatase 69 U/L (46-116); Aspartate Aminotransferase 31 U/L (13-40); Calcium 7.7 mg/dL (8.5-10.1); Chloride 101 mmol/L (98-107); Glucose 108 mg/dL (74-106); Potassium 3.9 mmol/L (3.5-5.1); Sodium 128 mmol/L (136-145)
[2023-03-24 06:21] LABS: Bilirubin, Total 0.6 mg/dL (0.2-1.0)
[2023-03-24] MEDS: InsuLIN REG 1unit/0.01ml Soln (100units/ml) SC SCH ×2 (06:33→11:30)
[2023-03-24] MEDS: ACCU-CHEK COMFORT CURVE STRIP VI SCH ×2 (06:34→11:41)
[2023-03-24 06:50] LABS: Blood Urea Nitrogen < 5 mg/dL (9-23)
[2023-03-24 06:52] LABS: Anion Gap 7.8 (5-15); Carbon Dioxide 19.2 mmol/L (20-30)
[2023-03-24] MEDS: THIAMINE HCL 100 MG TAB PO SCH (09:25)
[2023-03-24] MEDS: MULTIPLE VITAMIN TAB PO SCH (09:26)
[2023-03-24] MEDS: FAMOTIDINE (10MG/ML) 2ML VL IV SCH (09:26)
[2023-03-24] MEDS: FOLIC ACID 1 MG TAB PO SCH (09:26)
== END 2023-03-24 14:18 | disposition home or self-care (01) | DRG 640 ==
LOC: ER 17:16 → EDBD 17:16 → TELE 23:40 → TELE-WESTW 03-23 12:42
PROVIDERS: ADMIT Nurse Practitioner Family; ATTEND Family Medicine
DX: E86.0 Dehydration (principal); G93.41 Metabolic encephalopathy; C78.00 Secondary malignant neoplasm of unspecified lung; C78.7 Secondary malignant neoplasm of liver and intrahepatic bile duct; R64 Cachexia; C43.9 Malignant melanoma of skin, unspecified; E87.1 Hypo-osmolality and hyponatremia; R55 Syncope and collapse; D64.9 Anemia, unspecified; F17.210 Nicotine dependence, cigarettes, uncomplicated; Z88.0 Allergy status to penicillin; Z88.8 Allergy status to other drugs, medicaments and biological substances; Z82.49 Family history of ischemic heart disease and other diseases of the circulatory system; Z85.820 Personal history of malignant melanoma of skin; Z90.49 Acquired absence of other specified parts of digestive tract; Z68.22 Body mass index [BMI] 22.0-22.9, adult
CPT/HCPCS: 36415; 71045; 74176; 80053; 80061; 81001; 82962; 83036; 83690; 83735; 83880; 84443; 84484; 85025; 85610; 85730; 93005; 93306; 96361; 96374; 96375; G0378; J2405; J3490; J7042; J7060

== ENCOUNTER 2023-05-21 17:10 | Inpatient (IN) | payer MEDICARE, MEDICAID ==
[~2023-05-21] VITALS: Ht 182.9 cm; Wt 71.5 kg
[~2023-05-21 17:10] MED LIST changes: +TIZA4CAP PO
[2023-05-21 18:18] LABS: Basophils # (auto) 0 10 ^3/uL (0-0.2); Eosinophils # (auto) 0.5 10 ^3/uL (0-0.8); Monocytes # (auto) 0.2 10 ^3/uL (0-1.3)
[2023-05-21 18:20] LABS: Eosinophils % (auto) 12.6 % (0.0-7.0); Hemoglobin 8.1 g/dL (13.5-17.5); Lymphocytes # (auto) 0.8 10 ^3/uL (0.4-5.4); Lymphocytes % (auto) 19.8 % (10.0-50.0); Mean Corpuscular Hgb Conc. 33.9 g/dL (32.0-36.0); Mean Corpuscular Volume 91.5 fL (80.0-100.0); Monocytes % (auto) 4.2 % (0.0-12.0); Neutrophils # (auto) 2.7 10 ^3/uL (1.6-8.6); Neutrophils % (auto) 62.4 % (37.0-80.0); Nucleated Red Blood Cells % 0.1 %; Red Blood Cells 2.62 10^6/uL (4.5-5.90); Red Cell Distribution Width 15.6 % (11.8-14.3); White Blood Cell 4.3 10^3/uL (4.4-10.8)
[2023-05-21 18:27] LABS: Alanine Aminotransferase 36 U/L (7-40); Albumin 4.1 g/dL (3.2-4.8); Alkaline Phosphatase 75 U/L (46-116); Anion Gap 11 (5-15); Aspartate Aminotransferase 103 U/L (13-40); BUN/Creatinine Ratio 6.8 (10.0-20.0); Blood Urea Nitrogen 10 mg/dL (9-23); Calcium 8.2 mg/dL (8.7-10.4); Carbon Dioxide 18 mmol/L (20-30); Chloride 98 mmol/L (98-107); Glucose 81 mg/dL (74-106); Potassium 3.7 mmol/L (3.5-5.1); Sodium 127 mmol/L (136-145)
[2023-05-21 18:28] LABS: Bilirubin, Total 1.3 mg/dL (0.2-1.0); Total Protein 6.6 g/dL (5.7-8.2)
[2023-05-21 18:30] VITALS: PULSE 101; RESP 18; O2SAT 98
[2023-05-21 18:49] LABS: Urine Bacteria NONE SEEN /hpf (None Seen); Urine Blood TRACE /uL (Negative); Urine Clarity Clear (Clear); Urine Color Yellow (Yellow); Urine Protein, UAD 1+ (Negative); Urine Specific Gravity 1.013 (1.001-1.035); Urine Urobilinogen Normal (Negative); Urine WBC 2 /hpf (0 - 3)
[2023-05-21] MEDS ORDERED: LACTATED RINGER'S 2,000 ML IV ONE (20:00)
[2023-05-21] MEDS ORDERED: DexAMETHasone SOD PHOS 10MG/1ML VIAL INJ IV ONE (20:45)
[2023-05-21] MEDS ORDERED: IOHEXOL 350 MG/ML 100ML IJ ONE (23:09)
[2023-05-22] VITALS (8 sets, daily range): BP systolic 96–100; BP diastolic 58–70; PULSE 74–78; RESP 18–19; TEMP 98.1–98.3; O2SAT 93–98
[2023-05-22] MEDS ORDERED: fentaNYL CITRATE 100 MCG/2 ML VL IV ONE
[2023-05-22] MEDS ORDERED: HYDROcodone-ACET 7.5/325MG TAB PO PRN (07:00)
[2023-05-22] MEDS ORDERED: ACETAMINOPHEN 325 MG TAB PO PRN (07:00)
[2023-05-22] MEDS: buPROPion HCL 100 MG TAB PO SCH ×2 (07:33→18:55)
[2023-05-22] MEDS: SODIUM CHLORIDE 0.9% 1,000 ML IV SCH ×2 (07:33→20:20)
[2023-05-22] MEDS: levETIRAcetam 500 MG TAB PO SCH ×2 (10:04→22:16)
[2023-05-22] MEDS ORDERED: GADOTERATE MEG 10 MMOL/20ml INJ (0.5MMOL/ml) IV ONE (14:54)
[2023-05-22] MEDS: MORPHINE SULFATE INJ 2 MG/ml SYRG IV PRN (15:10)
[2023-05-22] MEDS ORDERED: AZITHROMYCIN 500MG/ 250ML 250 ML IV ONE (15:15)
[2023-05-22] MEDS ORDERED: cefTRIAXone 1GM/50ML D5W 50 ML IV ONE (15:15)
[2023-05-22] MEDS ORDERED: LORazepam 0.5 MG TAB PO PRN (15:30)
[2023-05-22] MEDS: HYDROcodone-ACET 10/325MG TAB PO PRN ×2 (16:26→20:56)
[2023-05-22] MEDS: IPRATROPIUM BROM 0.5 MG/2.5ML INH SOL NEB SCH (18:38)
[2023-05-22] MEDS: ALBUTEROL MEDNEB 2.5 mg/3ml NEB NEB SCH (18:38)
[2023-05-22] MEDS: ONDANSETRON HCL 4 MG/2 ML VIAL IV PRN (18:55)
[2023-05-22] MEDS: TEMAZEPAM 15 MG CAP PO PRN (23:26)
[2023-05-23] VITALS (13 sets, daily range): BP systolic 91–104; BP diastolic 54–62; PULSE 16–86; RESP 17–20; TEMP 98.1–98.7; O2SAT 92–100
[2023-05-23] MEDS: buPROPion HCL 100 MG TAB PO SCH ×2 (06:26→19:05)
[2023-05-23 06:38] LABS: Basophils # (auto) 0 10 ^3/uL (0-0.2); Eosinophils # (auto) 0 10 ^3/uL (0-0.8); Neutrophils # (auto) 2.7 10 ^3/uL (1.6-8.6)
[2023-05-23 06:43] LABS: Basophils % (auto) 0.6 % (0.0-2.0); Hematocrit 19.9 % (41.0-53.0); Lymphocytes # (auto) 1.1 10 ^3/uL (0.4-5.4); Lymphocytes % (auto) 25.4 % (10.0-50.0); Mean Corpuscular Hemoglobin 31.5 pg (28.0-32.0); Mean Corpuscular Hgb Conc. 35.1 g/dL (32.0-36.0); Mean Corpuscular Volume 89.8 fL (80.0-100.0); Monocytes # (auto) 0.3 10 ^3/uL (0-1.3); Monocytes % (auto) 8.3 % (0.0-12.0); Neutrophils % (auto) 65.7 % (37.0-80.0); Nucleated Red Blood Cells % 0.1 %; Red Blood Cells 2.21 10^6/uL (4.5-5.90); Red Cell Distribution Width 15.7 % (11.8-14.3); White Blood Cell 4.2 10^3/uL (4.4-10.8)
[2023-05-23 06:51] LABS: Alanine Aminotransferase 28 U/L (7-40); Albumin 3.7 g/dL (3.2-4.8); Alkaline Phosphatase 57 U/L (46-116); Anion Gap 7 (5-15); Aspartate Aminotransferase 54 U/L (13-40); BUN/Creatinine Ratio 10.8 (10.0-20.0); Blood Urea Nitrogen 10 mg/dL (9-23); Calcium 8.2 mg/dL (8.5-10.1); Carbon Dioxide 21 mmol/L (20-30); Chloride 104 mmol/L (98-107); Glucose 150 mg/dL (74-106); Potassium 3.8 mmol/L (3.5-5.1)
[2023-05-23 06:52] LABS: Bilirubin, Total 0.9 mg/dL (0.2-1.0); Total Protein 5.8 g/dL (5.7-8.2)
[2023-05-23 06:53] LABS: INR 1.09 (0.9-1.15); Partial Thromboplastin Time 28.4 SEC (24.5-34.5); Prothrombin Time 11.4 sec (9.3-11.8); Sodium 132 mmol/L (136-145)
[2023-05-23] MEDS: IPRATROPIUM BROM 0.5 MG/2.5ML INH SOL NEB SCH ×3 (07:58→18:18)
[2023-05-23] MEDS: ALBUTEROL MEDNEB 2.5 mg/3ml NEB NEB SCH ×3 (07:58→18:18)
[2023-05-23] MEDS: cefTRIAXone 1GM/50ML D5W 50 ML IV SCH (08:50)
[2023-05-23] MEDS: SODIUM CHLORIDE 0.9% 1,000 ML IV SCH ×2 (09:09→22:19)
[2023-05-23] MEDS ORDERED: GADOTERATE MEG 10 MMOL/20ml INJ (0.5MMOL/ml) IV ONE (09:09)
[2023-05-23] MEDS: levETIRAcetam 500 MG TAB PO SCH ×2 (10:44→22:13)
[2023-05-23] MEDS: AZITHROMYCIN 500MG/ 250ML 250 ML IV SCH (10:45)
[2023-05-23] MEDS: MORPHINE SULFATE INJ 2 MG/ml SYRG IV PRN (16:24)
[2023-05-24] VITALS (13 sets, daily range): BP systolic 96–128; BP diastolic 39–74; PULSE 59–83; RESP 17–22; TEMP 97.9–98.9; O2SAT 94–98
[2023-05-24] MEDS: ALBUTEROL MEDNEB 2.5 mg/3ml NEB NEB SCH ×3 (06:27→18:25)
[2023-05-24] MEDS: IPRATROPIUM BROM 0.5 MG/2.5ML INH SOL NEB SCH ×3 (06:27→18:25)
[2023-05-24] MEDS: buPROPion HCL 100 MG TAB PO SCH ×2 (06:40→20:06)
[2023-05-24] MEDS: cefTRIAXone 1GM/50ML D5W 50 ML IV SCH (09:18)
[2023-05-24 10:36] LABS: Eosinophils # (auto) 0.3 10 ^3/uL (0-0.8); Hematocrit 24.2 % (41.0-53.0); Hemoglobin 8.3 g/dL (13.5-17.5); Lymphocytes # (auto) 2.4 10 ^3/uL (0.4-5.4); Neutrophils % (auto) 49.2 % (37.0-80.0); Red Blood Cells 2.67 10^6/uL (4.5-5.90)
[2023-05-24 10:38] LABS: Basophils # (auto) 0 10 ^3/uL (0-0.2); Basophils % (auto) 0.7 % (0.0-2.0); Lymphocytes % (auto) 37.1 % (10.0-50.0); Mean Corpuscular Hgb Conc. 34.1 g/dL (32.0-36.0); Mean Corpuscular Volume 90.8 fL (80.0-100.0); Monocytes # (auto) 0.5 10 ^3/uL (0-1.3); Neutrophils # (auto) 3.1 10 ^3/uL (1.6-8.6); Red Cell Distribution Width 15.6 % (11.8-14.3); White Blood Cell 6.4 10^3/uL (4.4-10.8)
[2023-05-24] MEDS: levETIRAcetam 500 MG TAB PO SCH ×2 (10:46→22:19)
[2023-05-24] MEDS: AZITHROMYCIN 500MG/ 250ML 250 ML IV SCH (10:46)
[2023-05-24] MEDS: oxyCODONE HCL 5MG TAB PO PRN ×3 (11:27→20:57)
[2023-05-24] MEDS: SODIUM CHLORIDE 0.9% 1,000 ML IV SCH (12:20)
[2023-05-24] MEDS: TEMAZEPAM 15 MG CAP PO PRN (22:19)
[2023-05-25] VITALS (16 sets, daily range): BP systolic 82–102; BP diastolic 53–70; PULSE 71–88; RESP 16–22; TEMP 97.8–98.3; O2SAT 92–99
[2023-05-25] MEDS ORDERED: PANTOPRAZOLE 40 MG/10 ML VIAL INJ IV ONE (02:15)
[2023-05-25 02:39] LABS: Basophils # (auto) 0.1 10 ^3/uL (0-0.2); Eosinophils # (auto) 0.7 10 ^3/uL (0-0.8); Hemoglobin 8.2 g/dL (13.5-17.5); Lymphocytes # (auto) 3.1 10 ^3/uL (0.4-5.4); Mean Corpuscular Volume 90.5 fL (80.0-100.0)
[2023-05-25 02:40] LABS: Basophils % (auto) 0.9 % (0.0-2.0); Eosinophils % (auto) 8.5 % (0.0-7.0); Hematocrit 24.4 % (41.0-53.0); Lymphocytes % (auto) 39.1 % (10.0-50.0); Mean Corpuscular Hemoglobin 30.4 pg (28.0-32.0); Mean Corpuscular Hgb Conc. 33.6 g/dL (32.0-36.0); Monocytes # (auto) 0.7 10 ^3/uL (0-1.3); Monocytes % (auto) 9.3 % (0.0-12.0); Neutrophils # (auto) 3.4 10 ^3/uL (1.6-8.6); Neutrophils % (auto) 42.2 % (37.0-80.0)
[2023-05-25 02:52] LABS: Alanine Aminotransferase 25 U/L (7-40); Albumin 3.7 g/dL (3.2-4.8); Alkaline Phosphatase 70 U/L (46-116); Anion Gap 8 (5-15); Aspartate Aminotransferase 61 U/L (13-40); BUN/Creatinine Ratio 9.2 (10.0-20.0); Bilirubin, Total 0.6 mg/dL (0.2-1.0); Blood Urea Nitrogen 8 mg/dL (9-23); Calcium 8.3 mg/dL (8.7-10.4); Carbon Dioxide 21 mmol/L (20-30); Chloride 99 mmol/L (98-107); Glucose 79 mg/dL (74-106); Potassium 3.3 mmol/L (3.5-5.1); Sodium 128 mmol/L (136-145); Total Protein 5.9 g/dL (5.7-8.2)
[2023-05-25] MEDS: SODIUM CHLORIDE 0.9% 1,000 ML IV SCH ×3 (03:56→23:54)
[2023-05-25] MEDS: ALBUTEROL MEDNEB 2.5 mg/3ml NEB NEB SCH ×3 (06:13→17:51)
[2023-05-25] MEDS: IPRATROPIUM BROM 0.5 MG/2.5ML INH SOL NEB SCH ×3 (06:13→17:51)
[2023-05-25] MEDS: buPROPion HCL 100 MG TAB PO SCH ×2 (06:34→18:11)
[2023-05-25] MEDS: cefTRIAXone 1GM/50ML D5W 50 ML IV SCH (08:23)
[2023-05-25] MEDS ORDERED: PANTOPRAZOLE 40 MG/10 ML VIAL INJ IV SCH (10:00)
[2023-05-25] MEDS: levETIRAcetam 500 MG TAB PO SCH ×2 (10:11→22:48)
[2023-05-25] MEDS: AZITHROMYCIN 500MG/ 250ML 250 ML IV SCH (10:12)
[2023-05-25] MEDS: PANTOPRAZOLE 40 MG/10 ML VIAL INJ IV SCH (10:12)
[2023-05-25] MEDS: oxyCODONE HCL 5MG TAB PO PRN ×4 (10:21→23:53)
[2023-05-25] MEDS: ONDANSETRON HCL 4 MG/2 ML VIAL IV PRN (10:28)
[2023-05-26] VITALS (13 sets, daily range): BP systolic 100–140; BP diastolic 61–72; PULSE 70–88; RESP 17–18; TEMP 97.8–98.2; O2SAT 90–98
[2023-05-26] MEDS: buPROPion HCL 100 MG TAB PO SCH ×2 (06:00→18:17)
[2023-05-26] MEDS: oxyCODONE HCL 5MG TAB PO PRN ×4 (06:00→19:53)
[2023-05-26] MEDS: IPRATROPIUM BROM 0.5 MG/2.5ML INH SOL NEB SCH ×3 (06:31→18:18)
[2023-05-26] MEDS: ALBUTEROL MEDNEB 2.5 mg/3ml NEB NEB SCH ×3 (06:31→18:18)
[2023-05-26] MEDS: cefTRIAXone 1GM/50ML D5W 50 ML IV SCH (10:31)
[2023-05-26] MEDS: PANTOPRAZOLE 40 MG/10 ML VIAL INJ IV SCH (10:31)
[2023-05-26] MEDS: AZITHROMYCIN 500MG/ 250ML 250 ML IV SCH (10:31)
[2023-05-26] MEDS: levETIRAcetam 500 MG TAB PO SCH ×2 (10:32→21:36)
[2023-05-26 10:53] LABS: Cortisol,PM 1.24 ug/dL (3.44-16.76)
[2023-05-26 10:57] LABS: Free T3 < 0.2 pg/mL (2.3-4.2)
[2023-05-26] MEDS ORDERED: LEVOTHYROXINE SODIUM 100 MCG/5 ML INJ IV ONE (11:15)
[2023-05-26] MEDS ORDERED: FUROSEMIDE 20 MG/2 ML VIAL IV ONE (11:15)
[2023-05-26] MEDS ORDERED: LEVOTHYROXINE SODIUM 25 MCG TAB PO ONE (11:15)
[2023-05-26] MEDS ORDERED: POTASSIUM CHL 20 Meq TABLET PO ONE (11:15)
[2023-05-26] MEDS ORDERED: HYDROCORTISONE SOD SUCC 100 MG/2ML INJ VIAL IV ONE (16:00)
[2023-05-26] MEDS ORDERED: HYDROCORTISONE SOD SUCC 100 MG/2ML INJ VIAL IV SCH (22:00)
[2023-05-27] VITALS (9 sets, daily range): BP systolic 100–108; BP diastolic 62–74; PULSE 76–82; RESP 16–18; TEMP 97.6–98.3; O2SAT 87–99
[2023-05-27] MEDS: oxyCODONE HCL 5MG TAB PO PRN ×4 (01:35→22:00)
[2023-05-27] MEDS: ALBUTEROL MEDNEB 2.5 mg/3ml NEB NEB SCH ×4 (06:00→20:43)
[2023-05-27] MEDS: IPRATROPIUM BROM 0.5 MG/2.5ML INH SOL NEB SCH ×4 (06:00→20:43)
[2023-05-27] MEDS: buPROPion HCL 100 MG TAB PO SCH ×2 (06:40→17:57)
[2023-05-27] MEDS: LEVOTHYROXINE SODIUM 25 MCG TAB PO SCH (06:41)
[2023-05-27 08:28] LABS: Chloride 97 mmol/L (98-107); Sodium 127 mmol/L (136-145)
[2023-05-27 08:29] LABS: Anion Gap 7 (5-15); Calcium 7.5 mg/dL (8.5-10.1); Carbon Dioxide 23 mmol/L (20-30)
[2023-05-27 08:34] LABS: BUN/Creatinine Ratio 7.8 (10.0-20.0); Blood Urea Nitrogen 7 mg/dL (9-23); Glucose 67 mg/dL (74-106)
[2023-05-27 09:05] LABS: Potassium 2.9 mmol/L (3.5-5.1)
[2023-05-27] MEDS ORDERED: HYDROCORTISONE SOD SUCC 100 MG/2ML INJ VIAL IV ONE (09:30)
[2023-05-27] MEDS ORDERED: ZOLPIDEM TARTRATE 5 MG TAB PO PRN (10:45)
[2023-05-27] MEDS: POTASSIUM CHL 20 Meq TABLET PO SCH ×2 (10:50→12:26)
[2023-05-27] MEDS: AZITHROMYCIN 250 MG TAB PO SCH (10:51)
[2023-05-27] MEDS: levETIRAcetam 500 MG TAB PO SCH ×2 (10:51→21:18)
[2023-05-27] MEDS: HYDROCORTISONE SOD SUCC 100 MG/2ML INJ VIAL IV SCH (21:18)
[2023-05-28] VITALS (14 sets, daily range): BP systolic 101–157; BP diastolic 59–87; PULSE 70–83; RESP 16–20; TEMP 97.8–98.8; O2SAT 77–99
[2023-05-28] MEDS: buPROPion HCL 100 MG TAB PO SCH ×2 (05:48→19:26)
[2023-05-28] MEDS: LEVOTHYROXINE SODIUM 25 MCG TAB PO SCH (05:49)
[2023-05-28 06:02] LABS: Chloride 98 mmol/L (98-107); Sodium 124 mmol/L (136-145)
[2023-05-28 06:03] LABS: Anion Gap 10 (5-15); Calcium 7.5 mg/dL (8.7-10.4); Carbon Dioxide 16 mmol/L (20-30)
[2023-05-28 06:08] LABS: Glucose 116 mg/dL (74-106)
[2023-05-28 06:09] LABS: Magnesium 1.9 mg/dL (1.6-2.6)
[2023-05-28] MEDS: ALBUTEROL MEDNEB 2.5 mg/3ml NEB NEB SCH ×3 (06:37→18:49)
[2023-05-28] MEDS: IPRATROPIUM BROM 0.5 MG/2.5ML INH SOL NEB SCH ×3 (06:37→18:49)
[2023-05-28 06:40] LABS: Blood Urea Nitrogen < 5 mg/dL (9-23)
[2023-05-28] MEDS: oxyCODONE HCL 5MG TAB PO PRN ×3 (08:31→20:56)
[2023-05-28] MEDS: AZITHROMYCIN 250 MG TAB PO SCH (09:06)
[2023-05-28] MEDS: levETIRAcetam 500 MG TAB PO SCH ×2 (09:06→20:56)
[2023-05-28] MEDS: HYDROCORTISONE SOD SUCC 100 MG/2ML INJ VIAL IV SCH (09:06)
[2023-05-28] MEDS ORDERED: SODIUM CHLORIDE 0.9% 1,000 ML IV SCH (10:15)
[2023-05-28] MEDS: ONDANSETRON HCL 4 MG/2 ML VIAL IV PRN (10:18)
[2023-05-28] MEDS ORDERED: HYDR-4792 PO (10:23)
[2023-05-28] MEDS ORDERED: HYDR20TA19 PO (10:23)
[2023-05-28] MEDS ORDERED: LEV25T PO (10:23)
[2023-05-28] MEDS ORDERED: AZIT-43 PO (10:23)
[2023-05-28 14:04] LABS: Chloride 95 mmol/L (98-107); Potassium 3.8 mmol/L (3.5-5.1); Sodium 123 mmol/L (136-145)
[2023-05-28 14:05] LABS: Anion Gap 12 (5-15); Carbon Dioxide 16 mmol/L (20-30)
[2023-05-28 14:10] LABS: BUN/Creatinine Ratio 6.1 (10.0-20.0); Blood Urea Nitrogen < 5 mg/dL (9-23); Glucose 103 mg/dL (74-106)
[2023-05-28] MEDS ORDERED: SODIUM CHL 3% 500 ML IV ONE (15:00)
[2023-05-28] MEDS: HYDROCORTISONE 10 MG TAB PO SCH (21:18)
[2023-05-29] VITALS (8 sets, daily range): BP systolic 106–125; BP diastolic 64–71; PULSE 71–84; RESP 16–19; TEMP 36.8; O2SAT 91–100
[2023-05-29] MEDS: MORPHINE SULFATE INJ 2 MG/ml SYRG IV PRN (01:00)
[2023-05-29 06:00] LABS: Chloride 102 mmol/L (98-107); Potassium 3.6 mmol/L (3.5-5.1)
[2023-05-29 06:01] LABS: Anion Gap 8 (5-15); Carbon Dioxide 19 mmol/L (20-30)
[2023-05-29 06:02] LABS: Calcium 7.7 mg/dL (8.7-10.4)
[2023-05-29 06:06] LABS: Glucose 95 mg/dL (74-106)
[2023-05-29 06:07] LABS: BUN/Creatinine Ratio 5.6 (10.0-20.0); Blood Urea Nitrogen 5 mg/dL (9-23)
[2023-05-29 06:11] LABS: Sodium 129 mmol/L (136-145)
[2023-05-29] MEDS: buPROPion HCL 100 MG TAB PO SCH (06:29)
[2023-05-29] MEDS: LEVOTHYROXINE SODIUM 25 MCG TAB PO SCH (06:29)
[2023-05-29] MEDS: ALBUTEROL MEDNEB 2.5 mg/3ml NEB NEB SCH (06:58)
[2023-05-29] MEDS: IPRATROPIUM BROM 0.5 MG/2.5ML INH SOL NEB SCH (06:58)
[2023-05-29] MEDS: AZITHROMYCIN 250 MG TAB PO SCH (09:06)
[2023-05-29] MEDS: levETIRAcetam 500 MG TAB PO SCH (09:06)
[2023-05-29] MEDS: HYDROCORTISONE 10 MG TAB PO SCH (12:35)
== END 2023-05-29 14:42 | disposition home or self-care (01) | DRG 871 ==
LOC: ER 17:10 → EDBD 17:10 → TELE 05-22 06:53 → EAST 05-22 14:13
PROVIDERS: ADMIT Nurse Practitioner; ATTEND Internal Medicine
DX: A41.9 Sepsis, unspecified organism (principal); J18.9 Pneumonia, unspecified organism; N17.0 Acute kidney failure with tubular necrosis; R64 Cachexia; E87.1 Hypo-osmolality and hyponatremia; E27.40 Unspecified adrenocortical insufficiency; J44.0 Chronic obstructive pulmonary disease with (acute) lower respiratory infection; E86.0 Dehydration; N18.9 Chronic kidney disease, unspecified; E03.9 Hypothyroidism, unspecified; E87.6 Hypokalemia; G89.29 Other chronic pain; C43.9 Malignant melanoma of skin, unspecified; Z88.0 Allergy status to penicillin; Z88.8 Allergy status to other drugs, medicaments and biological substances; Z82.49 Family history of ischemic heart disease and other diseases of the circulatory system; Z68.21 Body mass index [BMI] 21.0-21.9, adult; Z72.0 Tobacco use; Z90.49 Acquired absence of other specified parts of digestive tract; Z71.6 Tobacco abuse counseling; D63.0 Anemia in neoplastic disease
CPT/HCPCS: 36415; 70553; 71045; 71046; 80048; 80053; 81001; 82533; 83605; 83735; 84132; 84439; 84443; 84481; 85025; 85610; 85730; 86850; 86900; 86901; 86920; 87040; 93005; 94640; 97110; 97116; 97163; 97530; C9113; G0378; J0696; J1100; J2405; J3490

== ENCOUNTER 2023-08-06 19:55 | Emergency (ER) | payer MEDICAID, MEDICARE, OTHER ==
[~2023-08-06] VITALS: Ht 180.3 cm; Wt 54.0 kg
[~2023-08-06 19:55] MED LIST changes: +AZIT-43 PO; +HYDR-4792 PO; +HYDR20TA19 PO; +LEV25T PO
[2023-08-06 20:35] VITALS: PULSE 80; RESP 16; O2SAT 100
[2023-08-06] MEDS ORDERED: SODIUM CHLORIDE 0.9% 1,000 ML IV ONE (21:45)
[2023-08-06 22:20] LABS: Basophils # (auto) 0.2 10 ^3/uL (0-0.2); Eosinophils # (auto) 0.9 10 ^3/uL (0-0.8); Eosinophils % (auto) 6.7 % (0.0-7.0); Hematocrit 21.9 % (41.0-53.0); Hemoglobin 7.1 g/dL (13.5-17.5); Nucleated Red Blood Cells % 0.1 %
[2023-08-06 22:22] LABS: Basophils % (auto) 1.6 % (0.0-2.0); Lymphocytes # (auto) 2.5 10 ^3/uL (0.4-5.4); Lymphocytes % (auto) 19.4 % (10.0-50.0); Mean Corpuscular Hemoglobin 26.9 pg (28.0-32.0); Mean Corpuscular Hgb Conc. 32.3 g/dL (32.0-36.0); Monocytes # (auto) 0.6 10 ^3/uL (0-1.3); Monocytes % (auto) 4.8 % (0.0-12.0); Neutrophils # (auto) 8.7 10 ^3/uL (1.6-8.6); Neutrophils % (auto) 67.5 % (37.0-80.0); Red Blood Cells 2.64 10^6/uL (4.5-5.90); White Blood Cell 12.8 10^3/uL (4.4-10.8)
[2023-08-06 22:36] LABS: Albumin 3.8 g/dL (3.2-4.8); Alkaline Phosphatase 136 U/L (46-116); Anion Gap 8 (5-15); Aspartate Aminotransferase 34 U/L (13-40); BUN/Creatinine Ratio 9.9 (10.0-20.0); Blood Urea Nitrogen 16 mg/dL (9-23); Calcium 9.9 mg/dL (8.5-10.1); Carbon Dioxide 24 mmol/L (20-30); Chloride 98 mmol/L (98-107); Glucose 70 mg/dL (74-106); Potassium 3.6 mmol/L (3.5-5.1); Sodium 130 mmol/L (136-145)
[2023-08-06 22:37] LABS: Bilirubin, Total 0.3 mg/dL (0.2-1.0); Total Protein 6.3 g/dL (5.7-8.2)
[2023-08-06 22:38] LABS: Alanine Aminotransferase 9 U/L (7-40)
[2023-08-06] MEDS ORDERED: KETOROLAC TROMETH 30 MG/ML 1ML VIAL IV ONE (23:15)
[2023-08-07] VITALS (7 sets, daily range): BP systolic 96–117; BP diastolic 57–73; PULSE 75–82; RESP 14–19; TEMP 97.3–99.4; O2SAT 99
== END 2023-08-07 06:55 | disposition home or self-care (01) ==
LOC: EDBD 19:55 → ER 19:55
DX: D64.9 Anemia, unspecified (principal); C79.9 Secondary malignant neoplasm of unspecified site; F17.210 Nicotine dependence, cigarettes, uncomplicated; Z90.49 Acquired absence of other specified parts of digestive tract; Z88.0 Allergy status to penicillin; Z88.6 Allergy status to analgesic agent
CPT/HCPCS: 36415; 36430; 80053; 82140; 85025; 86850; 86900; 86901; 86920; 93005; 96361; 96374; 99291; J1885; J7030; P9016

== ENCOUNTER 2023-08-12 19:13 | Inpatient (IN) | payer MEDICARE, OTHER ==
[~2023-08-12] VITALS: Ht 185.4 cm; Wt 72.4 kg
[2023-08-12] MEDS ORDERED: DEXTROSE 50% SYRINGE 50 ML IV ONE (19:35)
[2023-08-12] MEDS ORDERED: DEXTROSE 10% 1,000 ML IV ONE (19:45)
[2023-08-12] MEDS ORDERED: DEXTROSE (50%) 50ML SYRG IV ONE (19:45)
[2023-08-12 20:48] LABS: Basophils # (auto) 0.1 10 ^3/uL (0-0.2); Eosinophils # (auto) 1.1 10 ^3/uL (0-0.8); Eosinophils % (auto) 9.3 % (0.0-7.0); Hematocrit 41.4 % (41.0-53.0); Hemoglobin 13.4 g/dL (13.5-17.5); Lymphocytes # (auto) 2.4 10 ^3/uL (0.4-5.4); Mean Corpuscular Hgb Conc. 32.4 g/dL (32.0-36.0); Mean Corpuscular Volume 83.5 fL (80.0-100.0); Monocytes # (auto) 0.5 10 ^3/uL (0-1.3); Monocytes % (auto) 4.4 % (0.0-12.0); Neutrophils # (auto) 7.4 10 ^3/uL (1.6-8.6); Neutrophils % (auto) 64.3 % (37.0-80.0); Nucleated Red Blood Cells % 0.1 %; Red Blood Cells 4.96 10^6/uL (4.5-5.90); Red Cell Distribution Width 16.4 % (11.8-14.3); White Blood Cell 11.4 10^3/uL (4.4-10.8)
[2023-08-12 21:05] LABS: Alanine Aminotransferase 10 U/L (7-40); Albumin 4.4 g/dL (3.2-4.8); Alkaline Phosphatase 196 U/L (46-116); Anion Gap 12 (5-15); Aspartate Aminotransferase 57 U/L (13-40); BUN/Creatinine Ratio 7.8 (10.0-20.0); Blood Alcohol < 3.0 mg/dL (<10); Blood Urea Nitrogen 13 mg/dL (9-23); Calcium 12.6 mg/dL (8.5-10.1); Carbon Dioxide 21 mmol/L (20-30); Chloride 99 mmol/L (98-107); Potassium 2.9 mmol/L (3.5-5.1); Sodium 132 mmol/L (136-145)
[2023-08-12 21:06] LABS: Bilirubin, Total 0.6 mg/dL (0.2-1.0); Total Protein 6.9 g/dL (5.7-8.2)
[2023-08-12 21:13] LABS: INR 1.26 (0.9-1.15); Partial Thromboplastin Time 36.3 SEC (24.5-34.5)
[2023-08-12 21:22] LABS: Lactic Acid w/Reflex 2.3 mmol/L (0.4-2.0)
[2023-08-12 21:23] LABS: Glucose 474 mg/dL (74-106)
[2023-08-12] MEDS ORDERED: levoFLOXacin 750MG 150 ML IV ONE (21:30)
[2023-08-12] MEDS ORDERED: CEFEPIME 2GM/50ML NS 50 ML IV ONE (22:00)
[2023-08-12 22:31] LABS: Chloride 100 mmol/L (98-107); Potassium 2.9 mmol/L (3.5-5.1); Sodium 132 mmol/L (136-145)
[2023-08-12 22:32] LABS: Anion Gap 11 (5-15); Carbon Dioxide 21 mmol/L (20-30)
[2023-08-12 22:33] LABS: Calcium 12.4 mg/dL (8.5-10.1)
[2023-08-12 22:37] LABS: BUN/Creatinine Ratio 9.3 (10.0-20.0); Blood Urea Nitrogen 14 mg/dL (9-23); Glucose 76 mg/dL (74-106)
[2023-08-12] MEDS: POTASSIUM CHL 20MEQ/100ML 100 ML IV SCH (23:55)
[2023-08-13] VITALS (11 sets, daily range): BP systolic 88–156; BP diastolic 55–96; PULSE 75–97; RESP 16–28; O2SAT 94–100
[2023-08-13] MEDS ORDERED: IOHEXOL 350 MG/ML 100ML IJ ONE (00:06)
[2023-08-13] MEDS: POTASSIUM CHL 20MEQ/100ML 100 ML IV SCH (02:53)
[2023-08-13] MEDS ORDERED: NITROGLYCERIN 0.4 MG SL TAB SL PRN (03:15)
[2023-08-13] MEDS ORDERED: MORPHINE SULFATE INJ 2 MG/ml SYRG IV PRN (03:15)
[2023-08-13] MEDS ORDERED: DEXTROSE 10% 1,000 ML IV SCH (03:15)
[2023-08-13] MEDS ORDERED: ACETAMINOPHEN 325 MG TAB PO PRN (03:15)
[2023-08-13] MEDS ORDERED: ONDANSETRON HCL 4 MG/2 ML VIAL IV PRN (03:15)
[2023-08-13 05:42] LABS: Amphetamine Screen, Urine Pos (NEGATIVE); Benzodiazephine Screen, Urine Neg (NEGATIVE); Urine Bacteria NONE SEEN /hpf (None Seen); Urine Blood Negative /uL (Negative); Urine Clarity Clear (Clear); Urine Color Yellow (Yellow); Urine Hyaline Cast FEW /lpf (0 - 2); Urine Mucus FEW (None Seen); Urine Protein, UAD 1+ (Negative); Urine Specific Gravity 1.016 (1.001-1.035); Urine Urobilinogen Normal (Negative); Urine WBC 2 /hpf (0 - 3)
[2023-08-13 05:44] LABS: Barbiturate Scree,Urine Pos (NEGATIVE); Cocaine Screen, Urine Neg (NEGATIVE); Opiate Scree,Urine Neg (NEGATIVE); Phencyclidine Screen, Urine Neg (NEGATIVE)
[2023-08-13 05:45] LABS: Cannabinoid Screen, Urine Neg (NEGATIVE)
[2023-08-13] MEDS: LEVOTHYROXINE SODIUM 25 MCG TAB PO SCH (07:00)
[2023-08-13 09:31] LABS: Base Excess -5.6 mmol/L (-2.0-2.0)
[2023-08-13] MEDS ORDERED: ZOLEDRONIC ACID 3 MG in SODIUM CHL 0.9% 100 ML IV ONE (09:45)
[2023-08-13] MEDS ORDERED: ETOMIDATE (2MG/ML) 20ML VIAL IV ONE (09:45)
[2023-08-13] MEDS ORDERED: ROCURONIUM 10MG/ML 10ML VIAL IV ONE (09:45)
[2023-08-13] MEDS ORDERED: levETIRAcetam 500 MG TAB PO SCH (10:00)
[2023-08-13] MEDS ORDERED: ENOXAPARIN SOD 40 MG/0.4 ML SYRINGE SC SCH (10:00)
[2023-08-13] MEDS: MIDAZOLAM DRIP 50 mg/50mL 50 ML IV SCH ×2 (10:00→22:09)
[2023-08-13] MEDS ORDERED: levoFLOXacin 500MG 100 ML IV SCH (10:00)
[2023-08-13] MEDS ORDERED: MIDAZOLAM DRIP 50 mg/50mL 50 ML IV ONE ×2 (10:03→14:07)
[2023-08-13] MEDS: D5W/SOD CHLO 0.9% 1,000 ML IV SCH ×2 (10:36→20:39)
[2023-08-13 10:46] LABS: Basophils # (auto) 0.1 10 ^3/uL (0-0.2); Basophils % (auto) 1.1 % (0.0-2.0); Eosinophils # (auto) 0.7 10 ^3/uL (0-0.8); Eosinophils % (auto) 8.4 % (0.0-7.0); Hemoglobin 11.4 g/dL (13.5-17.5); Lymphocytes # (auto) 2.4 10 ^3/uL (0.4-5.4); Lymphocytes % (auto) 27.8 % (10.0-50.0); Mean Corpuscular Hemoglobin 26.8 pg (28.0-32.0); Mean Corpuscular Hgb Conc. 31.8 g/dL (32.0-36.0); Mean Corpuscular Volume 84.2 fL (80.0-100.0); Monocytes # (auto) 0.4 10 ^3/uL (0-1.3); Monocytes % (auto) 4.7 % (0.0-12.0); Nucleated Red Blood Cells % 0.1 %; Red Blood Cells 4.28 10^6/uL (4.5-5.90); Red Cell Distribution Width 16.1 % (11.8-14.3); White Blood Cell 8.7 10^3/uL (4.4-10.8)
[2023-08-13] MEDS ORDERED: VANCOMYCIN PER PHARMACY 0 MG IV SCH (11:00)
[2023-08-13 11:07] LABS: Albumin 3.7 g/dL (3.2-4.8); Alkaline Phosphatase 155 U/L (46-116); Anion Gap 9 (5-15); Aspartate Aminotransferase 41 U/L (13-40); Bilirubin, Total 0.4 mg/dL (0.2-1.0); Blood Urea Nitrogen 13 mg/dL (9-23); Calcium 12.4 mg/dL (8.5-10.1); Carbon Dioxide 20 mmol/L (20-30); Chloride 100 mmol/L (98-107); Cholesterol 123 mg/dL (< 200); Glucose 96 mg/dL (74-106); HDL Cholesterol 13 mg/dL (40-59); LDL Cholesterol 64 mg/dL (< 100); Potassium 3.5 mmol/L (3.5-5.1); Sodium 129 mmol/L (136-145); Triglycerides 228 mg/dL (< 150)
[2023-08-13 11:08] LABS: Alanine Aminotransferase < 9 U/L (7-40); Total Protein 6.3 g/dL (5.7-8.2)
[2023-08-13 11:09] LABS: INR 1.25 (0.9-1.15); Prothrombin Time 12.9 sec (9.3-11.8)
[2023-08-13] MEDS ORDERED: VANCOMYCIN 1GM/200ML 200 ML IV ONE (11:15)
[2023-08-13 11:18] LABS: Lactic Acid w/Reflex 2.9 mmol/L (0.4-2.0)
[2023-08-13 11:19] LABS: Free T3 < 0.2 pg/mL (2.3-4.2); Free T4 (Free Thyroxine) 0.13 ng/dL (0.89-1.76)
[2023-08-13 11:32] LABS: Base Excess -7.5 mmol/L (-2.0-2.0)
[2023-08-13] MEDS ORDERED: NOREPINEPHRINE 8 MG/250ML KIT 250 ML IV ONE (11:41)
[2023-08-13] MEDS: NOREPINEPHRINE 8 MG/250ML KIT 250 ML IV SCH (11:54)
[2023-08-13 12:32] LABS: Lipase 570 U/L (12-53); Magnesium 1.9 mg/dL (1.6-2.6)
[2023-08-13] MEDS ORDERED: fentaNYL Drip 2500mCg/250mlNS 250 ML IV ONE (14:39)
[2023-08-13] MEDS: fentaNYL Drip 2500mCg/250mlNS 250 ML IV SCH (14:45)
[2023-08-13] MEDS ORDERED: fentaNYL Drip 2500mCg/250mlNS 250 ML IV SCH (16:30)
[2023-08-13] MEDS ORDERED: LEVOTHYROXINE SODIUM 100 MCG/5 ML INJ IV ONE (16:30)
[2023-08-13] MEDS: ENOXAPARIN SOD 60 MG/0.6 ML SYRINGE SC SCH (22:47)
[2023-08-14] VITALS (92 sets, daily range): BP systolic 81–114; BP diastolic 39–69; PULSE 69–98; RESP 12–31; TEMP 97.3–99.9; O2SAT 96–100
[2023-08-14] MEDS: NOREPINEPHRINE 8 MG/250ML KIT 250 ML IV SCH ×2 (02:28→23:31)
[2023-08-14] MEDS: MIDAZOLAM DRIP 50 mg/50mL 50 ML IV SCH ×3 (02:34→17:35)
[2023-08-14] MEDS: LEVOTHYROXINE SODIUM 25 MCG TAB PO SCH (06:09)
[2023-08-14] MEDS: D5W/SOD CHLO 0.9% 1,000 ML IV SCH ×3 (06:16→21:16)
[2023-08-14 07:13] LABS: Eosinophils # (auto) 0.5 10 ^3/uL (0-0.8); Hemoglobin 11.9 g/dL (13.5-17.5); Monocytes # (auto) 0.2 10 ^3/uL (0-1.3)
[2023-08-14 07:15] LABS: Basophils # (auto) 0 10 ^3/uL (0-0.2); Basophils % (auto) 0.7 % (0.0-2.0); Eosinophils % (auto) 7.7 % (0.0-7.0); Lymphocytes # (auto) 1.1 10 ^3/uL (0.4-5.4); Lymphocytes % (auto) 16.6 % (10.0-50.0); Mean Corpuscular Hemoglobin 27.6 pg (28.0-32.0); Mean Corpuscular Hgb Conc. 33.1 g/dL (32.0-36.0); Mean Corpuscular Volume 83.5 fL (80.0-100.0); Monocytes % (auto) 2.8 % (0.0-12.0); Neutrophils # (auto) 4.9 10 ^3/uL (1.6-8.6); Neutrophils % (auto) 72.2 % (37.0-80.0); Red Blood Cells 4.32 10^6/uL (4.5-5.90); Red Cell Distribution Width 16.4 % (11.8-14.3); White Blood Cell 6.8 10^3/uL (4.4-10.8)
[2023-08-14 07:19] LABS: Alanine Aminotransferase 10 U/L (7-40); Albumin 3.2 g/dL (3.2-4.8); Alkaline Phosphatase 173 U/L (46-116); Anion Gap 12 (5-15); Aspartate Aminotransferase 133 U/L (13-40); BUN/Creatinine Ratio 9.5 (10.0-20.0); Bilirubin, Total 0.4 mg/dL (0.2-1.0); Calcium 11.5 mg/dL (8.5-10.1); Carbon Dioxide 17 mmol/L (20-30); Chloride 103 mmol/L (98-107); Glucose 99 mg/dL (74-106); Potassium 3.6 mmol/L (3.5-5.1); Sodium 132 mmol/L (136-145)
[2023-08-14 07:20] LABS: Total Protein 5.2 g/dL (5.7-8.2)
[2023-08-14 07:23] LABS: Blood Urea Nitrogen 24 mg/dL (9-23); Lactic Acid w/Reflex 2.9 mmol/L (0.4-2.0)
[2023-08-14 07:36] LABS: Lipase 251 U/L (12-53); Magnesium 1.6 mg/dL (1.6-2.6)
[2023-08-14 08:23] LABS: Base Excess -8.1 mmol/L (-2.0-2.0)
[2023-08-14] MEDS: LACTULOSE 20Gm/30ML SOLN GT SCH ×2 (09:45→21:16)
[2023-08-14] MEDS: LEVOTHYROXINE SODIUM 100 MCG/5 ML INJ IV SCH (09:45)
[2023-08-14] MEDS: ENOXAPARIN SOD 60 MG/0.6 ML SYRINGE SC SCH (09:45)
[2023-08-14] MEDS: levETIRAcetam 500 mg/100ml 100 ML IV SCH ×2 (09:45→21:16)
[2023-08-14] MEDS ORDERED: HYDR-4792 PO (11:07)
[2023-08-14] MEDS ORDERED: LEVO25TA6 PO (11:08)
[2023-08-14] MEDS ORDERED: TIZA-142 PO (11:10)
[2023-08-14] MEDS ORDERED: VANCOMYCIN 1GM/200ML 200 ML IV ONE (11:45)
[2023-08-14] MEDS ORDERED: PANTOPRAZOLE 40 MG/10 ML VIAL INJ IV ONE (12:45)
[2023-08-14] MEDS: fentaNYL Drip 2500mCg/250mlNS 250 ML IV SCH (14:45)
[2023-08-15] VITALS (103 sets, daily range): BP systolic 89–116; BP diastolic 40–68; PULSE 73–86; RESP 12–23; TEMP 97.7–99.9; O2SAT 98–100
[2023-08-15] MEDS: fentaNYL Drip 2500mCg/250mlNS 250 ML IV SCH ×2 (02:06→22:57)
[2023-08-15 04:11] LABS: Basophils # (auto) 0.1 10 ^3/uL (0-0.2); Basophils % (auto) 0.9 % (0.0-2.0); Eosinophils # (auto) 0.8 10 ^3/uL (0-0.8); Eosinophils % (auto) 7.2 % (0.0-7.0); Hematocrit 31.5 % (41.0-53.0); Hemoglobin 10.2 g/dL (13.5-17.5); Lymphocytes # (auto) 2.1 10 ^3/uL (0.4-5.4); Lymphocytes % (auto) 19.5 % (10.0-50.0); Mean Corpuscular Hemoglobin 27.9 pg (28.0-32.0); Mean Corpuscular Hgb Conc. 32.3 g/dL (32.0-36.0); Mean Corpuscular Volume 86.5 fL (80.0-100.0); Monocytes # (auto) 0.5 10 ^3/uL (0-1.3); Monocytes % (auto) 4.7 % (0.0-12.0); Neutrophils # (auto) 7.3 10 ^3/uL (1.6-8.6); Neutrophils % (auto) 67.7 % (37.0-80.0); Red Blood Cells 3.64 10^6/uL (4.5-5.90); Red Cell Distribution Width 16.3 % (11.8-14.3); White Blood Cell 10.7 10^3/uL (4.4-10.8)
[2023-08-15 04:26] LABS: Alanine Aminotransferase 14 U/L (7-40); Albumin 3.1 g/dL (3.2-4.8); Alkaline Phosphatase 218 U/L (46-116); Anion Gap 11 (5-15); Aspartate Aminotransferase 189 U/L (13-40); BUN/Creatinine Ratio 6.9 (10.0-20.0); Blood Urea Nitrogen 23 mg/dL (9-23); Calcium 10.2 mg/dL (8.7-10.4); Carbon Dioxide 16 mmol/L (20-30); Chloride 106 mmol/L (98-107); Glucose 72 mg/dL (74-106); Lipase 69 U/L (12-53); Magnesium 1.8 mg/dL (1.6-2.6); Potassium 4.2 mmol/L (3.5-5.1); Sodium 133 mmol/L (136-145)
[2023-08-15 04:27] LABS: Bilirubin, Total 0.3 mg/dL (0.2-1.0); Total Protein 5.2 g/dL (5.7-8.2)
[2023-08-15 04:43] LABS: CRP High Sensitivity 17.18 mg/dL (<1.0)
[2023-08-15] MEDS: NOREPINEPHRINE 8 MG/250ML KIT 250 ML IV SCH ×3 (05:08→22:55)
[2023-08-15] MEDS: D5W/SOD CHLO 0.9% 1,000 ML IV SCH (05:59)
[2023-08-15] MEDS: MIDAZOLAM DRIP 50 mg/50mL 50 ML IV SCH ×2 (05:59→19:21)
[2023-08-15] MEDS: LEVOTHYROXINE SODIUM 25 MCG TAB PO SCH (05:59)
[2023-08-15] MEDS ORDERED: CLINIMIX PER PHARMACY 0 ML IV SCH (07:30)
[2023-08-15] MEDS ORDERED: CEFEPIME 1GM/ 50ML 50 ML IV ONE (08:45)
[2023-08-15] MEDS: LACTULOSE 20Gm/30ML SOLN GT SCH ×2 (09:00→21:02)
[2023-08-15] MEDS: ENOXAPARIN SOD 60 MG/0.6 ML SYRINGE SC SCH (09:01)
[2023-08-15] MEDS: PANTOPRAZOLE 40 MG/10 ML VIAL INJ IV SCH (09:01)
[2023-08-15] MEDS: LEVOTHYROXINE SODIUM 100 MCG/5 ML INJ IV SCH (09:01)
[2023-08-15] MEDS: levETIRAcetam 500 mg/100ml 100 ML IV SCH ×2 (09:01→21:03)
[2023-08-15] MEDS: CEFEPIME 1GM/ 50ML 50 ML IV SCH (09:51)
[2023-08-15 09:53] LABS: Base Excess -14.3 mmol/L (-2.0-2.0)
[2023-08-15] MEDS ORDERED: SODIUM BICARBONATE 8.4% INJ 50ML SYRINGE ONE (10:44)
[2023-08-15] MEDS ORDERED: SODIUM BICARBONATE 50ML VIAL 100 ML in D5W 5% 1,000 ML IV SCH (10:45)
[2023-08-15] MEDS ORDERED: SODIUM BICARBONATE 8.4 % INJ 50ML VIAL IV ONE ×4 (11:00→22:54)
[2023-08-15] MEDS ORDERED: FUROSEMIDE 100 MG/10ML VIAL IV ONE (12:15)
[2023-08-15] MEDS: SODIUM BICARBONATE 50ML VIAL 150 ML in D5W 5% 1,000 ML IV SCH (13:00)
[2023-08-15] MEDS ORDERED: VASOPRESSIN 20 UNITS in SODIUM CHL 0.9% 99 ML IV SCH ×4 (15:00)
[2023-08-15 15:47] LABS: Base Excess -11.4 mmol/L (-2.0-2.0)
[2023-08-15] MEDS: VASOPRESSIN 20 UNITS in SODIUM CHL 0.9% 99 ML IV SCH (16:00)
[2023-08-15 18:45] LABS: Base Excess -6.6 mmol/L (-2.0-2.0)
[2023-08-15] MEDS ORDERED: AMINO ACID INFUSION IN D10W 1,000 ML IV SCH (20:00)
[2023-08-15] MEDS: InsuLIN REG 1unit/0.01ml Soln (100units/ml) SC SCH (23:48)
[2023-08-15] MEDS: ACCU-CHEK COMFORT CURVE STRIP VI SCH (23:48)
[2023-08-16] VITALS (52 sets, daily range): BP systolic 70–110; BP diastolic 39–63; PULSE 60–78; RESP 19–23; TEMP 97.7–99.3; O2SAT 99–100
[2023-08-16] MEDS ORDERED: DEXTROSE (50%) 50ML SYRG IV SCH
[2023-08-16] MEDS: SODIUM BICARBONATE 50ML VIAL 150 ML in D5W 5% 1,000 ML IV SCH (00:54)
[2023-08-16] MEDS: NOREPINEPHRINE 8 MG/250ML KIT 250 ML IV SCH ×2 (02:53→07:23)
[2023-08-16] MEDS: VASOPRESSIN 20 UNITS in SODIUM CHL 0.9% 99 ML IV SCH (03:07)
[2023-08-16 03:54] LABS: Basophils # (auto) 0.1 10 ^3/uL (0-0.2); Basophils % (auto) 1.3 % (0.0-2.0); Eosinophils # (auto) 0.7 10 ^3/uL (0-0.8); Eosinophils % (auto) 8.4 % (0.0-7.0); Hematocrit 31.1 % (41.0-53.0); Hemoglobin 10.2 g/dL (13.5-17.5); Lymphocytes # (auto) 1.4 10 ^3/uL (0.4-5.4); Lymphocytes % (auto) 17.5 % (10.0-50.0); Mean Corpuscular Hemoglobin 27.8 pg (28.0-32.0); Mean Corpuscular Hgb Conc. 32.8 g/dL (32.0-36.0); Mean Corpuscular Volume 84.8 fL (80.0-100.0); Monocytes # (auto) 0.4 10 ^3/uL (0-1.3); Monocytes % (auto) 5.6 % (0.0-12.0); Neutrophils # (auto) 5.3 10 ^3/uL (1.6-8.6); Neutrophils % (auto) 67.2 % (37.0-80.0); Nucleated Red Blood Cells % 0.2 %; Red Blood Cells 3.67 10^6/uL (4.5-5.90); Red Cell Distribution Width 16.6 % (11.8-14.3); White Blood Cell 7.9 10^3/uL (4.4-10.8)
[2023-08-16 04:12] LABS: Alanine Aminotransferase 15 U/L (7-40); Albumin 2.8 g/dL (3.2-4.8); Alkaline Phosphatase 211 U/L (46-116); Anion Gap 12 (5-15); Aspartate Aminotransferase 125 U/L (13-40); BUN/Creatinine Ratio 7.7 (10.0-20.0); Blood Urea Nitrogen 29 mg/dL (9-23); Carbon Dioxide 20 mmol/L (20-30); Chloride 105 mmol/L (98-107); Glucose 100 mg/dL (74-106); Lipase 34 U/L (12-53); Magnesium 1.6 mg/dL (1.6-2.6); Phosphorus 6.7 mg/dL (2.4-5.1); Potassium 3.6 mmol/L (3.5-5.1); Sodium 137 mmol/L (136-145)
[2023-08-16 04:13] LABS: Bilirubin, Total 0.4 mg/dL (0.2-1.0); Total Protein 4.9 g/dL (5.7-8.2)
[2023-08-16 04:31] LABS: Lactic Acid w/Reflex 2.9 mmol/L (0.4-2.0)
[2023-08-16 04:41] LABS: CRP High Sensitivity 18.95 mg/dL (<1.0)
[2023-08-16] MEDS: LEVOTHYROXINE SODIUM 25 MCG TAB PO SCH (05:29)
[2023-08-16] MEDS: InsuLIN REG 1unit/0.01ml Soln (100units/ml) SC SCH (05:29)
[2023-08-16] MEDS: ACCU-CHEK COMFORT CURVE STRIP VI SCH (05:29)
[2023-08-16] MEDS: MIDAZOLAM DRIP 50 mg/50mL 50 ML IV SCH (05:30)
[2023-08-16 08:46] LABS: Base Excess -5.6 mmol/L (-2.0-2.0)
[2023-08-16] MEDS: LEVOTHYROXINE SODIUM 100 MCG/5 ML INJ IV SCH (10:18)
[2023-08-16] MEDS: PANTOPRAZOLE 40 MG/10 ML VIAL INJ IV SCH (10:18)
[2023-08-16] MEDS: CEFEPIME 1GM/ 50ML 50 ML IV SCH (10:18)
[2023-08-16] MEDS: LACTULOSE 20Gm/30ML SOLN GT SCH (10:18)
[2023-08-16] MEDS: ENOXAPARIN SOD 60 MG/0.6 ML SYRINGE SC SCH (10:18)
[2023-08-16] MEDS: levETIRAcetam 500 mg/100ml 100 ML IV SCH (10:19)
[2023-08-16] MEDS ORDERED: SODIUM BICARBONATE 50ML VIAL 150 ML in D5W 5% 1,000 ML IV SCH (11:00)
[2023-08-16] MEDS ORDERED: LORazepam 2MG/ML-1ML VIAL ONE (11:43)
[2023-08-16] MEDS ORDERED: MORPHINE SULFATE INJ 2 MG/ml SYRG IV PRN (11:45)
[2023-08-16] MEDS ORDERED: LORazepam 2MG/ML-1ML VIAL IV PRN (11:45)
[2023-08-16] MEDS ORDERED: MAGNESIUM SULFATE 1GM/100ML 100 ML IV ONE (12:00)
[2023-08-16] MEDS ORDERED: POTASSIUM CHL 20MEQ/100ML 100 ML IV ONE (14:00)
== END 2023-08-16 12:20 | DRG 871 ==
LOC: ER 19:13 → EDBD 19:13 → TELE 08-13 03:07 → ICU WEST 08-13 03:17
PROVIDERS: ADMIT Internal Medicine; ATTEND Neuromusculoskeletal Medicine & OMM
PROC: B548ZZA Ultrasonography of Superior Vena Cava, Guidance (ICD-10-PCS; principal; 2023-08-13)
PROC: 0BH17EZ Insertion of Endotracheal Airway into Trachea, Via Natural or Artificial Opening (ICD-10-PCS; 2023-08-13)
PROC: 5A1945Z Respiratory Ventilation, 24-96 Consecutive Hours (ICD-10-PCS; 2023-08-13)
DX: A41.9 Sepsis, unspecified organism (principal); G93.41 Metabolic encephalopathy; J96.00 Acute respiratory failure, unspecified whether with hypoxia or hypercapnia; N17.0 Acute kidney failure with tubular necrosis; R65.21 Severe sepsis with septic shock; J69.0 Pneumonitis due to inhalation of food and vomit; R64 Cachexia; J44.0 Chronic obstructive pulmonary disease with (acute) lower respiratory infection; D68.9 Coagulation defect, unspecified; G93.1 Anoxic brain damage, not elsewhere classified; E87.20 Acidosis, unspecified; Z68.1 Body mass index [BMI] 19.9 or less, adult; E16.2 Hypoglycemia, unspecified; R62.7 Adult failure to thrive; E27.8 Other specified disorders of adrenal gland; D64.9 Anemia, unspecified; C43.9 Malignant melanoma of skin, unspecified; E03.9 Hypothyroidism, unspecified; E86.0 Dehydration; N18.9 Chronic kidney disease, unspecified; F15.10 Other stimulant abuse, uncomplicated; E83.52 Hypercalcemia; Z88.0 Allergy status to penicillin; Z88.1 Allergy status to other antibiotic agents; Z88.5 Allergy status to narcotic agent; Z88.8 Allergy status to other drugs, medicaments and biological substances; Z79.899 Other long term (current) drug therapy; Z83.3 Family history of diabetes mellitus; Z80.0 Family history of malignant neoplasm of digestive organs; Z82.49 Family history of ischemic heart disease and other diseases of the circulatory system; Z80.8 Family history of malignant neoplasm of other organs or systems; Z85.820 Personal history of malignant melanoma of skin; Z68.21 Body mass index [BMI] 21.0-21.9, adult
CPT/HCPCS: 36415; 36600; 71045; 71250; 71275; 72125; 74176; 80048; 80053; 80061; 80202; 80307; 80320; 81001; 82140; 82270; 82306; 82550; 82607; 82805; 82962; 83036; 83605; 83690; 83735; 83970; 84100; 84439; 84443; 84481; 84484; 85025; 85379; 85610; 85730; 86141; 87040; 87070; 87077; 87081; 87086; 87186; 87205; 93005; 93306; 93971; 94002; 94003; C9113; G0378; J2250; J3480; J3489; J3490; J7042